=== PATIENT | female | born 1960 | race Hispanic/Latino ===

== ENCOUNTER 2016-11-25 13:07 | Emergency (ER) | payer OTHER ==
[2016-11-25] MEDS ORDERED: TDAP Vaccine 0.5 mL Syr IM ONE (13:41)
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
[2016-11-25] MEDS ORDERED: Lidocaine/Epi 1% 1:100000 20 ML IJ ONE (16:12)
[2016-11-25] MEDS ORDERED: Lidocaine 2% w Epi 1:100,000 Inj IJ ONE (16:25)
--- NOTE | 2016-11-25 16:53 | CT ---
CT orbits without IV contrast Indication: r/o facial bone fx Comparison: Noncontrast head CT performed the same day. Technique: Axial computed tomography images were obtained of the orbits without the use of intravenous contrast. Coronal and sagittal reformatted images were generated and reviewed. This CT exam was performed using 1 or more of the falling dose reduction techniques: Automated exposure control, adjustment of the MAA and/or kV according to patient size, and/or use of iterative reconstruction technique. Radiation dose: Total exam DLP = 773.48 mGy-cm. Findings: Left frontal/ scalp soft tissue swelling. The facial bones appear intact without acute displaced fracture. The orbits appear unremarkable. The temporomandibular joints are located. Mucosal thickening of the left sphenoid sinus. No air-fluid levels. Minimal opacification within the right external auditory canal, likely cerumen. The visualized brain appears unremarkable. Enlarged lobulated soft tissue mass anterior to the anterior margin of the sternocleidomastoid on the right containing coarse calcifications. Correlate clinically for dystrophic calcifications related to prior head and neck radiation. Asymmetry of the hypopharynx on the right as compared to the left ; underlying neoplasm is not excluded. The skin and subcutaneous thickening likely related to edema/erythema. Follow-up CT of the neck with IV contrast recommended if indicated. Degenerative changes of the included portions upper cervical spine. Please refer to CT cervical spine performed the same day. Impression: Left frontal/scalp soft tissue swelling. No acute displaced fracture. Enlarged lobulated soft tissue mass anterior to the anterior margin of the sternocleidomastoid on the right containing coarse calcifications. Correlate clinically for dystrophic calcifications related to prior head and neck radiation. Asymmetry of the hypopharynx on the right as compared to the left ; underlying neoplasm is not excluded. The skin and subcutaneous thickening likely related to edema/erythema ; this may also be related to prior radiation. Follow-up CT soft tissue neck with IV contrast recommended for further evaluation if indicated. Findings were discussed with Willaim Dooley on 11/21/16 at approximately 340 p.m..
[2016-11-25 19:52] VITALS: BP 132/92; PULSE 96; RESP 14; TEMP 98.8; O2SAT 98
== END 2016-11-25 18:10 | disposition home or self-care (01) ==
LOC: H.ER 13:07
DX: S01.81XA Laceration without foreign body of other part of head, initial encounter (principal); M54.2 Cervicalgia; R51 Headache; V43.52XA Car driver injured in collision with other type car in traffic accident, initial encounter; Y92.410 Unspecified street and highway as the place of occurrence of the external cause; I10 Essential (primary) hypertension; J45.909 Unspecified asthma, uncomplicated; Z92.3 Personal history of irradiation

== ENCOUNTER 2016-12-02 12:27 | Emergency (ER) | payer OTHER ==
[2016-12-02 12:45] VITALS: BP 109/72; PULSE 86; RESP 16; TEMP 98.2; O2SAT 100
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
== END 2016-12-02 13:35 | disposition home or self-care (01) ==
LOC: H.ER 12:27
DX: Z48.02 Encounter for removal of sutures (principal); I10 Essential (primary) hypertension; J45.909 Unspecified asthma, uncomplicated

== ENCOUNTER 2017-04-24 11:35 | Emergency (ER) | payer OTHER ==
[2017-04-24 12:09] VITALS: BP 119/82; PULSE 77; RESP 16; TEMP 97.8; O2SAT 97; BMI 22.1
--- NOTE | 2017-04-24 13:00 | ED PDOC ---
Lower Extremity Pain/Injury Time Seen by Provider: 04/24/17 12:10 Chief Complaint (Nursing): Lower Extremity Problem/Injury Chief Complaint (Provider): Left Ankle Pain History Per: Patient History/Exam Limitations: no limitations Onset/Duration Of Symptoms: Days (x3 weeks) Current Symptoms Are (Timing): Still Present Additional Complaint(s): Melodie Sotomayor is a 57 year old female that presents to the ED with a chief complaint of left ankle and calf pain. Patient reports that three weeks ago she twisted her left ankle during a fall, and has continued to experience pain since then. 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) Denies: HIV, Chronic Kidney Disease - Family History Family History: States: Unknown Family Hx - Immunization History Hx Tetanus Toxoid Vaccination: Yes - Home Medications Home Medications: Ambulatory Orders Medication Instructions Recorded ALPRAZolam [Xanax] 1 mg PO TID PRN #10 tab 09/29/15 Albuterol HFA [Ventolin HFA 90 2 puff IH Q6H PRN 12/19/15 mcg/actuation (8 g)] Hydrocodone/Acetaminophen [[place] 1 tab PO Q4H PRN 12/19/15 10-325 Tablet] Cephalexin [Keflex] 500 mg PO QID #20 capsule 11/25/16 Ibuprofen [Motrin] 600 mg PO Q8 PRN #15 tab 11/25/16 Clindamycin [Cleocin] 300 mg PO QID #40 cap 04/24/17 - Allergies Allergies/Adverse Reactions: Allergies Allergy/AdvReac Type Severity Reaction Status Date / Time naproxen [From Naprosyn] Allergy RASH Verified 12/02/16 12:42 prednisone Allergy RASH Verified 12/02/16 12:42 Review of Systems Musculoskeletal: Positive for: Leg Pain (left ankle and calf pain) Physical Exam - Reviewed Nursing Documentation Reviewed: Yes Vital Signs Reviewed: Yes - Physical Exam Appears: Positive for: Non-toxic, No Acute Distress Head Exam: Positive for: ATRAUMATIC, NORMOCEPHALIC Skin: Positive for: Normal Color, Warm Eye Exam: Positive for: Normal appearance, EOMI, PERRL Pulses-Dorsalis Pedis (L): 2+ Pulses-Dorsalis Pedis (R): 2+ Pulses-Post. Tibialis (L): 2+ Pulses-Post. Tibialis (R): 2+ Extremity: Positive for: Normal ROM, Tenderness (Mild TTP left medial and lateral malleolus), Calf Tenderness (Left calf). Negative for: Deformity, Swelling Neurologic/Psych: Positive for: Alert, Oriented. Negative for: Motor/Sensory Deficits - ECG O2 Sat by Pulse Oximetry: 97 (RA) Pulse Ox Interpretation: Normal Medical Decision Making Medical Decision Making: Impression: Left Ankle Injury Plan: * X-Ray Left Ankle * US Left Lower Extremity Vein (-) DVT X-ray without acute fracture or dislocation. Scribe Attestation: Documented by Mirian Cedillo, acting as a scribe for Latanya Pate PA-C. Provider Scribe Attestation: All medical record entries made by the Scribe were at my direction and personally dictated by me. I have reviewed the chart and agree that the record accurately reflects my personal performance of the history, physical exam, medical decision making, and the department course for this patient. I have also personally directed, reviewed, and agree with the discharge instructions and disposition. Disposition - Clinical Impression Clinical Impression: Ankle injury - Patient ED Disposition Is Patient to be Admitted: No Counseled Patient/Family Regarding: Diagnosis, Need For Followup - Disposition Referrals: Podiatry Clinic [Outside] Disposition: Routine/Home Disposition Time: 14:01 Condition: GOOD Prescriptions: Clindamycin [Cleocin] 300 mg PO QID #40 cap Instructions: Ankle Sprain (ED) Forms: [employer] (Citizen Of [place])
--- NOTE | 2017-04-24 14:24 | RAD ---
PROCEDURE: Left Ankle Radiographs. HISTORY: twisted 3 weeks ago, not improving COMPARISON: None FINDINGS: BONES: Bone alignment and mineralization are normal. No acute fracture. There is a small plantar calcaneal spur. JOINTS: Normal. No osteoarthritis. Ankle mortise maintained. Talar dome intact SOFT TISSUES: Normal. OTHER FINDINGS: None. IMPRESSION: No acute fracture or dislocation.
--- NOTE | 2017-04-24 14:33 | US ---
HISTORY: Pain, history of cancer PRIORS: None. FINDINGS: 2-D, color and duplex Doppler analysis of the lower extremity venous circulation using routine protocol from the femoral veins through the popliteal veins. Venous compressibility: Normal. Flow and augmentation patterns: Normal. Visualized veins upper third of calf: Normal. Gill[place]and cyst: None. IMPRESSION: No sonographic or Doppler evidence for DVT in left lower extremity.
== END 2017-04-24 14:06 | disposition home or self-care (01) ==
LOC: H.ER 11:35
DX: M25.572 Pain in left ankle and joints of left foot (principal); I10 Essential (primary) hypertension

== ENCOUNTER 2017-10-19 19:37 | Emergency (ER) | payer SELFPAY ==
[2017-10-19 19:37] VITALS: BMI 22.1
[2017-10-19 19:47] VITALS: BP 160/78; PULSE 74; RESP 18; TEMP 97.7; O2SAT 98
--- NOTE | 2017-10-19 20:33 | ED PDOC ---
HPI: General Adult Time Seen by Provider: 10/19/17 20:09 Chief Complaint (Nursing): Abnormal Skin Integrity Chief Complaint (Provider): Medication refill, Wound Evaluation and Bloodwork History Per: Patient History/Exam Limitations: no limitations Additional Complaint(s): 57 year old female presents to the emergency room to be evaluated. The patient first states that she has noticed some drainage from her old G-tube site. She reports that she was given bactrim a month ago for the same problem but her symptoms returned. She reports that the site only drains when she squeezes it. Patient also states that she is also here to get blood work as ordered by her oncologist. She reports that she had chemotherapy last month and is unable to get her out patient labs back. Patient is also asking for a refill of her ativan , as she is unable to see her primary care provider. Patient offers no other medical complaints. PMD: Dr. 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) Denies: HIV, Chronic Kidney Disease - Surgical History Surgical History: No Surg Hx - Family History Family History: States: Unknown Family Hx - Social History Current smoker - smoking cessation education provided: No Ex-Smoker (has not smoked in the last 12 months): No Alcohol: None Drugs: Denies - Immunization History Hx Tetanus Toxoid Vaccination: Yes - Home Medications Home Medications: Ambulatory Orders Medication Instructions Recorded ALPRAZolam [Xanax] 1 mg PO TID PRN #10 tab 09/29/15 Albuterol HFA [Ventolin HFA 90 2 puff IH Q6H PRN 12/19/15 mcg/actuation (8 g)] Hydrocodone/Acetaminophen [[place] 1 tab PO Q4H PRN 12/19/15 10-325 Tablet] Cephalexin [Keflex] 500 mg PO QID #20 capsule 11/25/16 Ibuprofen [Motrin] 600 mg PO Q8 PRN #15 tab 11/25/16 Clindamycin [Cleocin] 300 mg PO QID #40 cap 04/24/17 Clindamycin [Cleocin] 450 mg PO TID #87 cap 10/19/17 LORazepam [Ativan] 1 mg PO TID PRN #15 tab 10/19/17 - Allergies Allergies/Adverse Reactions: Allergies Allergy/AdvReac Type Severity Reaction Status Date / Time naproxen [From Naprosyn] Allergy RASH Verified 12/02/16 12:42 prednisone Allergy RASH Verified 12/02/16 12:42 Review of Systems ROS Statement: Except As Marked, All Systems Reviewed And Found Negative Constitutional: Negative for: Fever, Chills Cardiovascular: Negative for: Chest Pain Gastrointestinal: Negative for: Nausea, Vomiting, Abdominal Pain, Diarrhea Physical Exam - Reviewed Nursing Documentation Reviewed: Yes Vital Signs Reviewed: Yes - Physical Exam Appears: Positive for: Non-toxic, No Acute Distress Head Exam: Positive for: ATRAUMATIC, NORMAL INSPECTION, NORMOCEPHALIC Skin: Positive for: Normal Color, Warm, Dry. Negative for: Rash Eye Exam: Positive for: Normal appearance, EOMI, PERRL Cardiovascular/Chest: Positive for: Regular Rate, Rhythm, Chest Non Tender. Negative for: Murmur, Tachycardia Respiratory: Positive for: Normal Breath Sounds. Negative for: Rales, Rhonchi, Wheezing, Respiratory Distress Gastrointestinal/Abdominal: Positive for: Bowel Sounds, Soft, Other (3mm puncture wound superior to umbilicus no active discharge minimal surrounding erythema no induration no lesions). Negative for: Tenderness, Guarding, Hernia Back: Positive for: Normal Inspection. Negative for: L CVA Tenderness, R CVA Tenderness, Vertebral Tenderness Neurologic/Psych: Positive for: Alert, Oriented, Gait - Laboratory Results Result Diagrams: 10/19/17 20:35 10/19/17 20:35 - ECG O2 Sat by Pulse Oximetry: 98 (RA) Pulse Ox Interpretation: Normal Medical Decision Making Medical Decision Makin Initial Impression 57 year old female presenting for medication refill, blood work and wound evaluation Initial Plan: * CMP * Magnesium * CBC * Wound Culture and Gram Stain * Reevaluation Documented by Ashwini Salmeron acting as a scribe for Anamika Naranjo MD. All medical record entries made by the Scribe were at my direction and personally dictated by me. I have reviewed the chart and agree that the record accurately reflects my personal performance of the history, physical exam, medical decision making, and the department course for this patient. I have also personally directed, reviewed, and agree with the discharge instructions and disposition. Disposition - Clinical Impression Clinical Impression: Cellulitis of umbilicus, Medication refill - Disposition Referrals: Nursing Techn Service [Outside] Disposition: Routine/Home Disposition Time: 21:26 Condition: STABLE Additional Instructions: FOLLOW-UP WITH YOUR PMD/ONCOLOGIST WITHIN 2 DAYS FOR REEVALUATION. Prescriptions: Clindamycin [Cleocin] 450 mg PO TID #87 cap LORazepam [Ativan] 1 mg PO TID PRN #15 tab PRN Reason: Anxiety Instructions: Cellulitis (Skin Infection), Adult (DC) Forms: [employer] ([place])
[2017-10-19 20:48] LABS: BASO # 0.1 K/uL (0.0-0.2); BASO % 1.2 % (0.0-2.0); EOS # 0.3 K/uL (0.0-0.7); EOS % 4.6 % (0.0-4.0); HEMOGLOBIN 12.3 g/dL (12.0-16.0); LYMPH # 1.8 K/uL (1.0-4.3); LYMPH % 28.1 % (20.0-40.0); MEAN CELL VOLUME 93.6 fl (81.0-99.0); MEAN CORPUSCULAR HEMOGLOBIN 31.7 pg (27.0-31.0); MEAN CORPUSCULAR HGB CONC 33.9 g/dL (33.0-37.0); MEAN PLATELET VOLUME 7.7 fl (7.2-11.7); MONO # 0.7 K/uL (0.0-0.8); MONO % 11.8 % (0.0-10.0); NEUT # 3.4 K/uL (1.8-7.0); NEUT % 54.3 % (50.0-75.0); NRBC % 0.5 % (0.0-0.0); RBC 3.87 Mil/uL (3.80-5.20); RED CELL DISTRIBUTION WIDTH 16.1 % (11.5-14.5); WHITE BLOOD COUNT 6.2 K/uL (4.8-10.8)
[2017-10-19 21:01] LABS: ALB/GLOB RATIO 1.6 (1.0-2.1); ALBUMIN 4.4 g/dL (3.5-5.0); ALT/SGPT 26 U/L (9-52); AST/SGOT 27 U/L (14-36); BLOOD UREA NITROGEN 22 mg/dl (7-17); CALCIUM 9.9 mg/dL (8.4-10.2); GFR AFRICAN-AMERICAN > 60; GFR NON-AFRICAN AMERICAN > 60
== END 2017-10-19 21:47 | disposition home or self-care (01) ==
LOC: H.ER 19:37
DX: Z51.11 Encounter for antineoplastic chemotherapy (principal); L03.316 Cellulitis of umbilicus; Z76.0 Encounter for issue of repeat prescription

== ENCOUNTER 2017-10-26 23:49 | Emergency (ER) | payer SELFPAY ==
[2017-10-26 23:49] VITALS: BMI 22.1
[2017-10-27 00:09] VITALS: RESP 17; TEMP 97.5; O2SAT 99
[2017-10-27 01:08] LABS: BASO # 0.1 K/uL (0.0-0.2); BASO % 1.3 % (0.0-2.0); EOS # 0.3 K/uL (0.0-0.7); HEMOGLOBIN 12.2 g/dL (12.0-16.0); LYMPH # 1.5 K/uL (1.0-4.3); LYMPH % 26.5 % (20.0-40.0); MEAN CELL VOLUME 93.1 fl (81.0-99.0); MEAN CORPUSCULAR HEMOGLOBIN 32.1 pg (27.0-31.0); MEAN CORPUSCULAR HGB CONC 34.5 g/dL (33.0-37.0); MEAN PLATELET VOLUME 7.9 fl (7.2-11.7); MONO # 0.7 K/uL (0.0-0.8); MONO % 11.6 % (0.0-10.0); NEUT # 3.1 K/uL (1.8-7.0); NEUT % 55.6 % (50.0-75.0); NRBC % 0.2 % (0.0-0.0); RBC 3.8 Mil/uL (3.80-5.20); RED CELL DISTRIBUTION WIDTH 15.5 % (11.5-14.5); WHITE BLOOD COUNT 5.7 K/uL (4.8-10.8)
[2017-10-27 01:11] LABS: ALB/GLOB RATIO 1.5 (1.0-2.1); ALBUMIN 4.1 g/dL (3.5-5.0); ALT/SGPT 27 U/L (9-52); AST/SGOT 23 U/L (14-36); BLOOD UREA NITROGEN 26 mg/dl (7-17); CALCIUM 9.4 mg/dL (8.4-10.2); GFR AFRICAN-AMERICAN > 60; GFR NON-AFRICAN AMERICAN 57
[2017-10-27] MEDS ORDERED: Iohexol 300 100 ML IJ ONE (01:46)
[2017-10-27] MEDS ORDERED: Sodium Chloride 0.9% 100 ML ONE (01:46)
[2017-10-27 02:52] LABS: SQUAMOUS EPITHIAL < 1 /hpf (0-5); URINE BILIRUBIN NEGATIVE (NEGATIVE); URINE BLOOD NEGATIVE (NEGATIVE); URINE CLARITY CLEAR (Clear); URINE COLOR YELLOW (YELLOW); URINE GLUCOSE (UA) NEG (Normal); URINE LEUKOCYTE ESTERASE MOD Leu/uL (Negative); URINE PROTEIN NEGATIVE (NEGATIVE); URINE UROBILINOGEN 0.2-1.0 mg/dL (0.2-1.0)
--- NOTE | 2017-10-27 03:25 | CT ---
EXAM: CT Abdomen and Pelvis With Intravenous Contrast EXAM DATE/TIME: 10/27/2017 12:20 AM CLINICAL HISTORY: 57 years old, female; Pain; Abdominal pain; Periumbilical; Additional info: R/O abscess. Old gtube removed 2016. Wound check TECHNIQUE: Axial computed tomography images of the abdomen and pelvis with intravenous contrast. All CT scans at this facility use one or more dose reduction techniques, viz.: automated exposure control; ma/kV adjustment per patient size (including targeted exams where dose is matched to indication; i.e. head); or iterative reconstruction technique. Coronal and sagittal reformatted images were created and reviewed. CONTRAST: 90 mL of [id number] administered intravenously. COMPARISON: CT - ABD PELVIS W/O PO OR IV CONT 2015-12-19 20:47 FINDINGS: Large gallstones are present similar to prior without evidence of pericholecystic inflammation. There is slight prominence of the intrahepatic biliary ducts.Recommend correlation with laboratory values. The spleen, pancreas, kidneys are normal. There is a bandlike area of soft tissue density in the subcutaneous fat anterior to the gastric lumen, presumably representing the tract of the patient's reported prior gastrostomy tube. The tract measures 8 mm in width and extends from the skin surface to the underlying left abdominis rectus muscle. There is no walled off fluid collection. There is no abscess. There is a linear metallic density along the anterior aspect of the gastric lumen. A normal appendix is identified axial images 120 through 137, coronal images 52 through 64. IMPRESSION: Bandlike soft tissue in the subcutaneous fat anterior to the gastric lumen, presumably tract of the patient's prior gastrostomy tube. No drainable abscess. Cholelithiasis. Slight prominence of the intrahepatic biliary ducts.Recommend correlation with laboratory values.
--- NOTE | 2017-10-27 03:30 | ED PDOC ---
HPI: Wound Care - HPI Time Seen by Provider: 10/27/17 00:08 Chief Complaint (Nursing): Wound Check Chief Complaint (Provider): Ostomy problems History Per: Patient History Of Present Illness: Pt indicates that she is a cancer patient from [place] who has developed a redness surrounding her ostomy from a g-tube that was removed approximately one year ago. 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) Denies: HIV, Chronic Kidney Disease - Family History Family History: States: Unknown Family Hx - Immunization History Hx Tetanus Toxoid Vaccination: Yes - Home Medications Home Medications: Ambulatory Orders Medication Instructions Recorded ALPRAZolam [Xanax] 1 mg PO TID PRN #10 tab 09/29/15 Albuterol HFA [Ventolin HFA 90 2 puff IH Q6H PRN 12/19/15 mcg/actuation (8 g)] Hydrocodone/Acetaminophen [[place] 1 tab PO Q4H PRN 12/19/15 10-325 Tablet] Cephalexin [Keflex] 500 mg PO QID #20 capsule 11/25/16 Ibuprofen [Motrin] 600 mg PO Q8 PRN #15 tab 11/25/16 Clindamycin [Cleocin] 300 mg PO QID #40 cap 04/24/17 Clindamycin [Cleocin] 450 mg PO TID #87 cap 10/19/17 LORazepam [Ativan] 1 mg PO TID PRN #15 tab 10/19/17 - Allergies Allergies/Adverse Reactions: Allergies Allergy/AdvReac Type Severity Reaction Status Date / Time naproxen [From Naprosyn] Allergy RASH Verified 12/02/16 12:42 prednisone Allergy RASH Verified 12/02/16 12:42 Review of Systems Skin: Positive for: Other (see HPI) - Laboratory Results Result Diagrams: 10/27/17 00:45 10/27/17 00:45 - ECG O2 Sat by Pulse Oximetry: 99 Medical Decision Making Medical Decision Making: R/O Abscess of abdominal wall CT CBC - no clinical abnormalities CMP - no clinical abnormalities CT ABD & PELVIS with IV CONTRAST TECHNIQUE: Axial computed tomography images of the abdomen and pelvis with intravenous contrast. All CT scans at this facility use one or more dose reduction techniques, viz.: automated exposure control; ma/kV adjustment per patient size (including targeted exams where dose is matched to indication; i.e. head); or iterative reconstruction technique. Coronal and sagittal reformatted images were created and reviewed. CONTRAST: 90 mL of [id number] administered intravenously. COMPARISON: CT - ABD PELVIS W/O PO OR IV CONT 2015-12-19 20:47 FINDINGS: Large gallstones are present similar to prior without evidence of pericholecystic inflammation. There is slight prominence of the intrahepatic biliary ducts.Recommend correlation with laboratory values. The spleen, pancreas, kidneys are normal. There is a bandlike area of soft tissue density in the subcutaneous fat anterior to the gastric lumen, presumably representing the tract of the patient's reported prior gastrostomy tube. The tract measures 8 mm in width and extends from the skin surface to the underlying left abdominis rectus muscle. There is no walled off fluid collection. There is no abscess. There is a linear metallic density along the anterior aspect of the gastric lumen. A normal appendix is identified axial images 120 through 137, coronal images 52 through 64. IMPRESSION: Bandlike soft tissue in the subcutaneous fat anterior to the gastric lumen, presumably tract of the patient's prior gastrostomy tube. No drainable abscess. Cholelithiasis. Slight prominence of the intrahepatic biliary ducts.Recommend correlation with laboratory values. 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
[2017-10-27 04:29] VITALS: BP 107/78; PULSE 82
== END 2017-10-27 04:29 | disposition home or self-care (01) ==
LOC: H.ER 23:49
DX: K94.09 Other complications of colostomy (principal); I10 Essential (primary) hypertension; J45.909 Unspecified asthma, uncomplicated; Z85.41 Personal history of malignant neoplasm of cervix uteri
CPT/HCPCS: 74177; 80053; 81003; 85025; 99283; Q9967

== ENCOUNTER 2018-03-03 17:42 | Emergency (ER) | payer MEDICAID ==
[2018-03-03 17:42] VITALS: BMI 22.1
[2018-03-03] MEDS ORDERED: Albuterol-Ipratrop 3 mg / 0.5 (3 ml) UD INH STA ×5 (18:24→20:32)
[2018-03-03 19:02] LABS: BASO # 0.1 K/uL (0.0-0.2); BASO % 1.1 % (0.0-2.0); EOS # 0.4 K/uL (0.0-0.7); EOS % 5.4 % (0.0-4.0); LYMPH # 1.5 K/uL (1.0-4.3); LYMPH % 18.4 % (20.0-40.0); MEAN CELL VOLUME 88.2 fl (81.0-99.0); MEAN CORPUSCULAR HEMOGLOBIN 30.1 pg (27.0-31.0); MEAN CORPUSCULAR HGB CONC 34.1 g/dL (33.0-37.0); MEAN PLATELET VOLUME 7.9 fl (7.2-11.7); MONO # 0.7 K/uL (0.0-0.8); MONO % 8.5 % (0.0-10.0); NEUT # 5.3 K/uL (1.8-7.0); NEUT % 66.6 % (50.0-75.0); NRBC % 0.1 % (0.0-0.0); RBC 4.65 Mil/uL (3.80-5.20); RED CELL DISTRIBUTION WIDTH 13.3 % (11.5-14.5); WHITE BLOOD COUNT 7.9 K/uL (4.8-10.8)
[2018-03-03 19:17] LABS: BLOOD UREA NITROGEN 15 mg/dl (7-17); CALCIUM 9.6 mg/dL (8.4-10.2); GFR AFRICAN-AMERICAN > 60; GFR NON-AFRICAN AMERICAN 51
--- NOTE | 2018-03-03 19:23 | ED PDOC ---
HPI: SOB/CHF/COPD Time Seen by Provider: 03/03/18 18:12 Chief Complaint (Nursing): Shortness Of Breath Chief Complaint (Provider): Shortness Of Breath History Per: Patient History/Exam Limitations: no limitations Onset/Duration Of Symptoms: Persistent (x1 week) Current Symptoms Are (Timing): Still Present Additional Complaint(s): 57 year old female with pmHx of asthma and squamous cell CA, arrives to ED with complaints of difficulty breathing, wheezing, cough and chills ongoing for 1 week. Patient was given Augmentin by PMD which made her feel better. However, she states today that she did not feel well with worsening symptoms. No reports of fever or chest pain. Of note, patient is currently undergoing experimental treatment for her squamous cell CA of the head and neck at [facility]. 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) Denies: HIV, Chronic Kidney Disease - Surgical History Surgical History: No Surg Hx - Family History Family History: States: Unknown Family Hx - Social History Current smoker - smoking cessation education provided: No Ex-Smoker (has not smoked in the last 12 months): No Alcohol: None Drugs: Denies - Immunization History Hx Tetanus Toxoid Vaccination: Yes - Home Medications Home Medications: Ambulatory Orders Medication Instructions Recorded ALPRAZolam [Xanax] 1 mg PO TID PRN #10 tab 09/29/15 Albuterol HFA [Ventolin HFA 90 2 puff IH Q6H PRN 12/19/15 mcg/actuation (8 g)] Hydrocodone/Acetaminophen [[place] 1 tab PO Q4H PRN 12/19/15 10-325 Tablet] Cephalexin [Keflex] 500 mg PO QID #20 capsule 11/25/16 Ibuprofen [Motrin] 600 mg PO Q8 PRN #15 tab 11/25/16 Clindamycin [Cleocin] 300 mg PO QID #40 cap 09/21/17 Clindamycin [Cleocin] 450 mg PO TID #87 cap 10/19/17 LORazepam [Ativan] 1 mg PO TID PRN #15 tab 10/19/17 Albuterol HFA [Ventolin HFA 90 2 puff IH [id number] #1 puff 03/03/18 mcg/actuation (8 g)] Dexamethasone [Decadron] 4 mg PO DAILY #4 tab 03/03/18 - Allergies Allergies/Adverse Reactions: Allergies Allergy/AdvReac Type Severity Reaction Status Date / Time naproxen [From Naprosyn] Allergy RASH Verified 03/03/18 17:53 prednisone Allergy RASH Verified 03/03/18 17:53 Review of Systems ROS Statement: Except As Marked, All Systems Reviewed And Found Negative Constitutional: Positive for: Chills. Negative for: Fever Cardiovascular: Negative for: Chest Pain Respiratory: Positive for: Cough, Shortness of Breath, Wheezing Physical Exam - Reviewed Nursing Documentation Reviewed: Yes Vital Signs Reviewed: Yes - Physical Exam Appears: Positive for: In Acute Distress (mild) Head Exam: Positive for: ATRAUMATIC, NORMAL INSPECTION, NORMOCEPHALIC Skin: Positive for: Normal Color Eye Exam: Positive for: Normal appearance, EOMI, PERRL ENT: Positive for: Normal ENT Inspection Neck: Positive for: Normal Cardiovascular/Chest: Positive for: Tachycardia (with regular rhythm) Respiratory: Positive for: Decreased Breath Sounds, Accessory Muscle Use, Wheezing (bilaterally), Respiratory Distress Gastrointestinal/Abdominal: Positive for: Normal Exam, Soft. Negative for: Tenderness Extremity: Positive for: Normal ROM Neurologic/Psych: Positive for: Alert, Oriented. Negative for: Motor/Sensory Deficits - Laboratory Results Result Diagrams: 03/03/18 18:50 03/03/18 18:50 - ECG O2 Sat by Pulse Oximetry: 90 (RA) Pulse Ox Interpretation: Normal Medical Decision Making Medical Decision Making: Initial Impression: Respiratory distress; cough with wheezing Differential includes but not limited to: asthma exacerbation, acute bronchitis , pneumonia Initial Plan: * ABG * EKG * BNP * BMP * Magnesium * Troponin I * CBC * CXR * Duoneb 3ml INH * Blood culture Time: 1826 --CXR: No acute cardiopulmonary process. --Patient states that she was instructed not to receive any IV mediations without approval due to experimental treatment. ---Called made out to [facility] at [phone]. 1899 Awaiting call back from [facility]. Time: 1850 --EKG: NSR at 99BMP. No ST changes. Normal QRS. Scribe Attestation: Documented by Linda Fulton, acting as a scribe for Curtis Silva MD. Provider Scribe Attestation: All medical record entries made by the Scribe were at my direction and personally dictated by me. I have reviewed the chart and agree that the record accurately reflects my personal performance of the history, physical exam, medical decision making, and the department course for this patient. I have also personally directed, reviewed, and agree with the discharge instructions and disposition. Disposition - Clinical Impression Clinical Impression: Asthma exacerbation - Patient ED Disposition Is Patient to be Admitted: Transfer of Care Counseled Patient/Family Regarding: Studies Performed, Diagnosis - Disposition Disposition: Transfer of Care Disposition Time: 19:00 Condition: STABLE Additional Instructions: Please followup with your team at [facility] ([facility] Khan[facility]) SOON POSSIBLE. If your breathing worsens, or you develop chest pain, fever > 102, or any other concerning symptoms, please return to ER. Please do not take the dexamethasone without the consultation of your team of physicians. Prescriptions: Albuterol HFA [Ventolin HFA 90 mcg/actuation (8 g)] 2 puff IH [id number] #1 puff Dexamethasone [Decadron] 4 mg PO DAILY #4 tab Instructions: Asthma, Adult (DC) Patient Signed Over To: Rafael Olvera
[2018-03-03 19:29] LABS: B-TYPE NATRIURETIC PEPTIDE 38.9 pg/ml (0-900)
[2018-03-03 19:59] LABS: ABG ALLEN TEST YES; ARTERIAL BLOOD GAS HCO3 25.5 mmol/L (21-28); ARTERIAL BLOOD GAS HEMOGLOBIN 13.6 g/dL (11.7-17.4); ARTERIAL BLOOD GAS O2 CAPACITY 18.2 mL/dL (16-24); ARTERIAL BLOOD GAS O2 CONTENT 16.2 ML/dL (15-23); ARTERIAL BLOOD GAS O2 SAT 88.8 % (95-98); ARTERIAL BLOOD GAS PCO2 41 mm/Hg (35-45); ARTERIAL BLOOD GAS PH 7.41 (7.35-7.45); ARTERIAL BLOOD GAS PO2 50 mm/Hg (80-100); ARTERIAL BLOOD GAS TCO2 27.3 mmol/L (22-28)
[2018-03-03] MEDS ORDERED: Albuterol HFA 90 mcg/actuation (8 g) INH STA (21:58)
--- NOTE | 2018-03-03 21:59 | ED PDOC ---
- Laboratory Results Result Diagrams: 03/03/18 18:50 03/03/18 18:50 - ECG O2 Sat by Pulse Oximetry: 90 (RA) Medical Decision Making Medical Decision Making: Time: 1899 --Patient is endorsed to provider by Dr. Silva, pending lab results and re- evaluation. Awaiting call-back from [facility]. Time: 2146 --Patient reports feeling significantly better with Nebulizer treatment. Vitals and wheezing significantly improved. She states she does not want steroids without consulting primary team at [facility]. Multiple attempts were made to contact hospital without success. Patient is asking for an Rx for inhaler and Decadron as she has used it previously with relief. Patient states she will call hospital tomorrow to ask her doctors if it is okay to take decadron. Provider strongly advised not to use Decadron without consulting team first. Counseled regarding diagnosis. There is agreement to discharge plan. Return precautions discussed with patient. Scribe Attestation: Documented by Linda Fulton, acting as a scribe for Rafael Olvera MD. Provider Scribe Attestation: All medical record entries made by the Scribe were at my direction and personally dictated by me. I have reviewed the chart and agree that the record accurately reflects my personal performance of the history, physical exam, medical decision making, and the department course for this patient. I have also personally directed, reviewed, and agree with the discharge instructions and disposition. Disposition Counseled Patient/Family Regarding: Studies Performed, Diagnosis, Need For Followup, Rx Given - Clinical Impression Clinical Impression: Asthma exacerbation - POA Present On Arrival: None - Disposition Disposition: Routine/Home Disposition Time: 21:47 Condition: IMPROVED Additional Instructions: Please followup with your team at [facility] ([facility]) SOON POSSIBLE. If your breathing worsens, or you develop chest pain, fever > 102, or any other concerning symptoms, please return to ER. Please do not take the dexamethasone without the consultation of your team of physicians. Prescriptions: Albuterol HFA [Ventolin HFA 90 mcg/actuation (8 g)] 2 puff IH [id number] #1 puff Dexamethasone [Decadron] 4 mg PO DAILY #4 tab Instructions: Asthma, Adult (DC) Forms: [email or web address] (Norwegian)
[2018-03-03 22:12] VITALS: BP 111/75; PULSE 86; RESP 20; TEMP 98.6
[2018-03-04 04:44] VITALS: O2SAT 90
--- NOTE | 2018-03-04 09:17 | CARD ---
APPROVED REPORT Date of service: 03/03/2018 EKG Measurement Heart [id number] <Conclusion> Normal sinus rhythm Normal ECG
--- NOTE | 2018-03-04 10:26 | RAD ---
Date of service: 03/03/2018 PROCEDURE: CHEST RADIOGRAPH, 1 VIEW HISTORY: Dyspnea COMPARISON: 12/15/2015. FINDINGS: LUNGS: The lungs are well inflated and clear. PLEURA: No pneumothorax or pleural fluid seen. CARDIOVASCULAR: Normal. OSSEOUS STRUCTURES: No significant abnormalities. VISUALIZED UPPER ABDOMEN: Normal. OTHER FINDINGS: None. IMPRESSION: No active pulmonary disease.
== END 2018-03-03 22:25 | disposition home or self-care (01) ==
LOC: H.ER 17:42
DX: J45.901 Unspecified asthma with (acute) exacerbation (principal); I10 Essential (primary) hypertension; Z85.41 Personal history of malignant neoplasm of cervix uteri

== ENCOUNTER 2018-03-08 19:37 | Emergency (ER) | payer MEDICAID ==
[2018-03-08 19:37] VITALS: BMI 22.1
[2018-03-08 19:51] VITALS: TEMP 98.8
[2018-03-08] MEDS ORDERED: Albuterol-Ipratrop 3 mg / 0.5 (3 ml) UD INH STA ×3 (20:12→23:18)
[2018-03-08] MEDS ORDERED: Albuterol-Ipratrop 3 mg / 0.5 (3 ml) UD ONE ×2 (20:25→23:28)
[2018-03-08 20:55] LABS: BASO # 0.1 K/uL (0.0-0.2); BASO % 1.1 % (0.0-2.0); EOS # 0.9 K/uL (0.0-0.7); EOS % 11.4 % (0.0-4.0); HEMOGLOBIN 13.4 g/dL (12.0-16.0); LYMPH # 1.3 K/uL (1.0-4.3); LYMPH % 16.6 % (20.0-40.0); MEAN CELL VOLUME 88.2 fl (81.0-99.0); MEAN PLATELET VOLUME 7.7 fl (7.2-11.7); MONO # 0.8 K/uL (0.0-0.8); MONO % 9.8 % (0.0-10.0); NEUT # 4.9 K/uL (1.8-7.0); NEUT % 61.1 % (50.0-75.0); NRBC % 0.1 % (0.0-0.0); RBC 4.45 Mil/uL (3.80-5.20); RED CELL DISTRIBUTION WIDTH 13.4 % (11.5-14.5)
[2018-03-08 20:59] LABS: ALB/GLOB RATIO 1.6 (1.0-2.1); ALBUMIN 4.3 g/dL (3.5-5.0); ALT/SGPT 34 U/L (9-52); AST/SGOT 38 U/L (14-36); BLOOD UREA NITROGEN 16 mg/dl (7-17); CALCIUM 9.3 mg/dL (8.4-10.2); GFR AFRICAN-AMERICAN > 60; GFR NON-AFRICAN AMERICAN 51
[2018-03-08 21:08] LABS: B-TYPE NATRIURETIC PEPTIDE 101 pg/ml (0-900)
[2018-03-08 21:30] VITALS: O2SAT 95
--- NOTE | 2018-03-08 21:57 | ED PDOC ---
HPI: SOB/CHF/COPD Time Seen by Provider: 03/08/18 19:40 Chief Complaint (Nursing): Respiratory Distress Chief Complaint (Provider): Asthma Exacerbation History Per: Patient History/Exam Limitations: no limitations Onset/Duration Of Symptoms: Days (x4) Current Symptoms Are (Timing): Still Present Additional Complaint(s): 57 y/o female with a PMHx of head and neck cancer (receiving Keytruda treatment at [facility] for squamous cell carcinoma) and hypertension presenting with mother for evaluation of asthma exacerbation, cough productive of yellow phlegm , shortness of breath, and difficulty breathing x4 days. Patient was seen here 4 days ago for shortness of breath and bronchitis, but reports minmal improvement of symptoms. Patient reports nausea, but denies vomiting or diarrhea. PMD: Unknown Past Medical History Vital Signs: Last Vital Signs Temp 98.8 F 03/08/18 19:46 Pulse 96 H 03/08/18 23:45 Resp 16 03/08/18 23:45 BP 120/76 03/08/18 23:45 Pulse Ox 95 03/08/18 23:49 - Medical History PMH: Asthma, HTN, Malignancy (internal Stage 4 Squamous Cell Carcinoma of the head/neck) Denies: HIV, Chronic Kidney Disease - Surgical History Surgical History: No Surg Hx - Family History Family History: States: Unknown Family Hx - Social History Ex-Smoker (has not smoked in the last 12 months): Yes Alcohol: None Drugs: Denies - Immunization History Hx Tetanus Toxoid Vaccination: Yes - Home Medications Home Medications: Ambulatory Orders Medication Instructions Recorded ALPRAZolam [Xanax] 1 mg PO TID PRN #10 tab 09/29/15 Albuterol HFA [Ventolin HFA 90 2 puff IH Q6H PRN 12/19/15 mcg/actuation (8 g)] Hydrocodone/Acetaminophen [[place] 1 tab PO Q4H PRN 12/19/15 10-325 Tablet] Cephalexin [Keflex] 500 mg PO QID #20 capsule 11/25/16 Ibuprofen [Motrin] 600 mg PO Q8 PRN #15 tab 11/25/16 Clindamycin [Cleocin] 300 mg PO QID #40 cap 04/24/17 Clindamycin [Cleocin] 450 mg PO TID #87 cap 10/19/17 LORazepam [Ativan] 1 mg PO TID PRN #15 tab 10/19/17 Albuterol HFA [Ventolin HFA 90 2 puff IH [id number] #1 puff 03/03/18 mcg/actuation (8 g)] Dexamethasone [Decadron] 4 mg PO DAILY #4 tab 03/03/18 - Allergies Allergies/Adverse Reactions: Allergies Allergy/AdvReac Type Severity Reaction Status Date / Time naproxen [From Naprosyn] Allergy RASH Verified 03/03/18 17:53 prednisone Allergy RASH Verified 03/03/18 17:53 Review of Systems ROS Statement: Except As Marked, All Systems Reviewed And Found Negative Respiratory: Positive for: Cough, Shortness of Breath, Sputum, Wheezing Gastrointestinal: Positive for: Nausea. Negative for: Vomiting, Diarrhea Physical Exam - Reviewed Nursing Documentation Reviewed: Yes Vital Signs Reviewed: Yes - Physical Exam Appears: Positive for: Non-toxic, No Acute Distress Head Exam: Positive for: ATRAUMATIC, NORMAL INSPECTION, NORMOCEPHALIC Skin: Positive for: Normal Color, Warm, Dry. Negative for: Rash Eye Exam: Positive for: EOMI, Normal appearance, PERRL ENT: Positive for: Normal ENT Inspection (speaking full sentences), Pharynx Is ( clear) Neck: Positive for: Normal, Painless ROM, Supple Cardiovascular/Chest: Positive for: Regular Rate, Rhythm. Negative for: Murmur Respiratory: Positive for: Wheezing (slight) Gastrointestinal/Abdominal: Positive for: Normal Exam, Soft. Negative for: Tenderness Back: Positive for: Normal Inspection. Negative for: L CVA Tenderness, R CVA Tenderness, Vertebral Tenderness Extremity: Positive for: Normal ROM. Negative for: Deformity Neurologic/Psych: Positive for: Alert, Oriented (x3). Negative for: Motor/ Sensory Deficits - Laboratory Results Result Diagrams: 03/08/18 20:39 03/08/18 20:39 - ECG ECG Rhythm: Positive for: Sinus Tachycardia (105) O2 Sat by Pulse Oximetry: 95 (RA) Pulse Ox Interpretation: Normal Medical Decision Making Medical Decision Makin:12 Plan: astyhma exacerbation rule out pneumonia -BNP -CMP -CBC w/ differential -Duoneb 3ml INH -Peak flow treatment -Reevaluation cxr appears to have no pneumonia labs reviewed, Upon reevaluation, potassium level was low so it was repeated. however pt refused the K. pt states has an appt tomorrow at [facility] when she gets her chemo treatment there. she states she needs to go home now, doesnt want steroids for asthma bec isnt sure it is compatible w her treatment tomorrow. however states she has to leave in a few hours to get to [facility] so will prefer to leave now. she states that the nebulizer treatments helped her. Upon provider evaluation patient is medically stable, and requires no further treatment in the ED at this time. Patient will be discharged. Counseling was provided and all questions were answered regarding diagnosis and need for follow up with [facility] for your treatment as instructed. There is agreement to discharge plan. Return if symptoms persist or worsen. Scribe Attestation: Documented by Go Contreras and Norma Joseph, acting as a scribes for Manuel Childress MD. Provider Scribe Attestation: All medical record entries made by the Scribe were at my direction and personally dictated by me. I have reviewed the chart and agree that the record accurately reflects my personal performance of the history, physical exam, medical decision making, and the department course for this patient. I have also personally directed, reviewed, and agree with the discharge instructions and disposition. Disposition - Clinical Impression Clinical Impression: Asthma attack - Patient ED Disposition Is Patient to be Admitted: No Counseled Patient/Family Regarding: Studies Performed, Diagnosis, Need For Followup - Disposition Disposition: Routine/Home Disposition Time: 23:20 Condition: IMPROVED Additional Instructions: follow up in [facility] tomorrow for your treatment as instructed return to the ED with any worsening or concerning symptoms Instructions: Asthma, Adult (DC) Forms: [employer] (Lao)
[2018-03-08] MEDS ORDERED: Potassium Chloride 20 mEq ER Tab PO ONE (22:55)
[2018-03-09 00:02] VITALS: BP 120/76; PULSE 96; RESP 16
--- NOTE | 2018-03-09 09:28 | RAD ---
Date of service: 03/08/2018 HISTORY: cough COMPARISON: Frontal chest radiograph 03/03/2018. TECHNIQUE: Chest PA and lateral FINDINGS: LUNGS: No active pulmonary disease. PLEURA: No significant pleural effusion identified. No pneumothorax apparent. CARDIOVASCULAR: Normal. OSSEOUS STRUCTURES: No significant abnormalities. VISUALIZED UPPER ABDOMEN: Normal. OTHER FINDINGS: None. IMPRESSION: No interval acute cardiopulmonary disease appreciated.
== END 2018-03-09 00:02 | disposition home or self-care (01) ==
LOC: H.ER 19:37
DX: J45.901 Unspecified asthma with (acute) exacerbation (principal); I10 Essential (primary) hypertension; Z85.41 Personal history of malignant neoplasm of cervix uteri

== ENCOUNTER 2018-04-17 11:39 | Inpatient (IN) | payer MEDICAID ==
[2018-04-17 12:08] VITALS: BMI 24.7
[2018-04-17] MEDS ORDERED: Dexamethasone 10 MG in Sodium Chloride 0.9% 50 ML IV ONE (12:12)
[2018-04-17] MEDS ORDERED: Albuterol-Ipratrop 3 mg / 0.5 (3 ml) UD INH STA (12:12)
[2018-04-17] MEDS ORDERED: Magnesium Sulfate 2 GM in Sodium Chloride 0.9% 100 ML IVPB ONE (12:13)
[2018-04-17] MEDS ORDERED: Sodium Chloride 0.9% 1,000 ML IV STA (12:14)
[2018-04-17 12:28] LABS: ABG ALLEN TEST YES; ARTERIAL BLOOD GAS HCO3 28.2 mmol/L (21-28); ARTERIAL BLOOD GAS O2 SAT 97.4 % (95-98); ARTERIAL BLOOD GAS PCO2 47 mm/Hg (35-45); ARTERIAL BLOOD GAS PH 7.41 (7.35-7.45); ARTERIAL BLOOD GAS PO2 78 mm/Hg (80-100); ARTERIAL BLOOD GAS TCO2 31.2 mmol/L (22-28)
[2018-04-17] MEDS ORDERED: Magnesium Sulfate 2 gm/50 ml 2 GM/50 ML BAG ONE (12:38)
[2018-04-17] MEDS ORDERED: Magnesium Sulfate 2 gm/50 ml 2 GM/50 ML BAG IV ONE (13:00)
[2018-04-17 13:06] LABS: BASO % 0.7 % (0.0-2.0); EOS # 0.1 K/uL (0.0-0.7); EOS % 1.1 % (0.0-4.0); HEMOGLOBIN 13.9 g/dL (12.0-16.0); LYMPH # 0.7 K/uL (1.0-4.3); LYMPH % 9.2 % (20.0-40.0); MEAN CELL VOLUME 89.4 fl (81.0-99.0); MEAN CORPUSCULAR HEMOGLOBIN 30.7 pg (27.0-31.0); MEAN CORPUSCULAR HGB CONC 34.4 g/dL (33.0-37.0); MEAN PLATELET VOLUME 7.8 fl (7.2-11.7); MONO # 0.3 K/uL (0.0-0.8); MONO % 3.6 % (0.0-10.0); NEUT # 6.3 K/uL (1.8-7.0); NEUT % 85.4 % (50.0-75.0); NRBC % 0.1 % (0.0-0.0); PLATELET COUNT 256 K/uL (130-400); RBC 4.51 Mil/uL (3.80-5.20); WHITE BLOOD COUNT 7.3 K/uL (4.8-10.8)
--- NOTE | 2018-04-17 13:09 | ED PDOC ---
HPI: SOB/CHF/COPD Time Seen by Provider: 04/17/18 11:57 Chief Complaint (Nursing): Shortness Of Breath Chief Complaint (Provider): Shortness Of Breath History Per: Patient History/Exam Limitations: no limitations Onset/Duration Of Symptoms: Days (4) Associated Symptoms: Other (cough, increase oxygen need). denies: Fever Additional Complaint(s): 58 years old female with history of asthma, COPD and lung cancer presents to the ED for evaluation of shortness of breath and increase oxygen need at home associated with cough onset 4 days. Patient reports she started on 2 L of oxygen intake as usual but had to take about 2.5 to 3 L to become comfortable. She states she is not eating as usual. Patient lives in [place], visits her son in [place] and receives treatment for lung cancer at [facility]. Patient reports she called her PMD who recommender to come and check if she has pneumonia. She denies any fever, nausea or vomiting. 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) Denies: HIV, Chronic Kidney Disease Other PMH: Lung Cancer - Surgical History Surgical History: No Surg Hx - Family History Family History: States: Unknown Family Hx - Social History Current smoker - smoking cessation education provided: No (Former, quit 2 years ago) Alcohol: None Drugs: Denies - Immunization History Hx Tetanus Toxoid Vaccination: Yes - Home Medications Home Medications: Ambulatory Orders Medication Instructions Recorded ALPRAZolam [Xanax] 1 mg PO TID PRN #10 tab 09/29/15 Albuterol HFA [Ventolin HFA 90 2 puff IH Q6H PRN 12/19/15 mcg/actuation (8 g)] Hydrocodone/Acetaminophen [[place] 1 tab PO Q4H PRN 12/19/15 10-325 Tablet] Cephalexin [Keflex] 500 mg PO QID #20 capsule 11/25/16 Ibuprofen [Motrin] 600 mg PO Q8 PRN #15 tab 11/25/16 Clindamycin [Cleocin] 300 mg PO QID #40 cap 04/24/17 Clindamycin [Cleocin] 450 mg PO TID #87 cap 10/19/17 LORazepam [Ativan] 1 mg PO TID PRN #15 tab 10/19/17 Albuterol HFA [Ventolin HFA 90 2 puff IH Q8WIGBS #1 puff 03/03/18 mcg/actuation (8 g)] Dexamethasone [Decadron] 4 mg PO DAILY #4 tab 03/03/18 - Allergies Allergies/Adverse Reactions: Allergies Allergy/AdvReac Type Severity Reaction Status Date / Time naproxen [From Naprosyn] Allergy RASH Verified 03/03/18 17:53 prednisone Allergy RASH Verified 03/03/18 17:53 Review of Systems ROS Statement: Except As Marked, All Systems Reviewed And Found Negative Constitutional: Negative for: Fever Respiratory: Positive for: Cough, Shortness of Breath, Other (Laboring) Gastrointestinal: Negative for: Nausea, Vomiting Physical Exam - Reviewed Nursing Documentation Reviewed: Yes Vital Signs Reviewed: Yes - Physical Exam Appears: Positive for: Non-toxic Cardiovascular/Chest: Positive for: Regular Rate, Rhythm. Negative for: Murmur Respiratory: Positive for: Wheezing (diffused bilateral inspiratory and expiratory). Negative for: Rales Gastrointestinal/Abdominal: Positive for: Normal Exam, Soft. Negative for: Tenderness Back: Positive for: Normal Inspection Extremity: Positive for: Normal ROM. Negative for: Tenderness, Swelling Neurologic/Psych: Positive for: Alert, Oriented (x3), Other (Speaks full sentences) - Laboratory Results Result Diagrams: 04/17/18 12:50 04/17/18 12:50 - ECG O2 Sat by Pulse Oximetry: 95 (RA) Pulse Ox Interpretation: Normal - Radiology X-Ray: Viewed By Sd X-Ray Interpretation: No Acute Disease - Progress Re-evaluation Time: 14:00 Condition: Re-examined, Unchanged - Critical Care Total Time (In Min): 30 Medical Decision Making Medical Decision Making: Time: 1210 Initial Impression: COPD exacerbation vs, pneumonia, Bronchitis, pneumothorax Initial Plan: --Labs --Chest x-ray --Decadron Inj 10 mg IV --Albuterol 3 ml IN --Magnesium Sulfate 2 gm IVPB --Peak flow pre/post treatment ----- Scribe Attestation: Documented by Ivanna Conklin, acting as a scribe for Chelsea Giordano MD. Provider Scribe Attestation: All medical record entries made by the Scribe were at my direction and personally dictated by me. I have reviewed the chart and agree that the record accurately reflects my personal performance of the history, physical exam, medical decision making, and the department course for this patient. I have also personally directed, reviewed, and agree with the discharge instructions and disposition. Disposition - Clinical Impression Clinical Impression: COPD exacerbation, Lung cancer - Patient ED Disposition Is Patient to be Admitted: Yes Doctor Will See Patient In The: Hospital - Disposition Disposition: Transfer of Care Disposition Time: 14:00 Condition: FAIR Instructions: Lung Cancer, Exacerbation of COPD (DC) Forms: [employer] ([employer]) (Amharic) - Pt Status Changed To: Hospital Disposition Of: Inpatient - Admit Certification Admit to Inpatient:: After my assessment, the patient will require hospitalization for at least two midnights. This is because of the severity of symptoms shown, intensity of services needed, and/or the medical risk in this patient being treated as an outpatient.
[2018-04-17 13:16] LABS: ALB/GLOB RATIO 1.6 (1.0-2.1); ALBUMIN 4.5 g/dL (3.5-5.0); ALT/SGPT 28 U/L (9-52); AST/SGOT 31 U/L (14-36); BLOOD UREA NITROGEN 16 mg/dl (7-17); CALCIUM 9.7 mg/dL (8.4-10.2); GFR NON-AFRICAN AMERICAN 57
--- NOTE | 2018-04-17 13:42 | RAD ---
Date of service: 04/17/2018 HISTORY: Dyspnea, increased O2 need, COPD/lung CA. COMPARISON: 03/08/2018. TECHNIQUE: Chest PA and lateral FINDINGS: LUNGS: No active pulmonary disease. PLEURA: No significant pleural effusion identified. No pneumothorax apparent. CARDIOVASCULAR: No radiographic findings to suggest acute or significant cardiovascular disease. OSSEOUS STRUCTURES: No significant abnormalities. VISUALIZED UPPER ABDOMEN: Normal. OTHER FINDINGS: None. IMPRESSION: No active disease. No significant interval change compared to the prior examination(s).
[2018-04-17 14:32] LABS: BANDS 2 % (0-2); LYMPHOCYTE 14 % (20-50); MONOCYTE 3 % (0-10); NEUTROPHIL 81 % (42-75); PLATELET ESTIMATE NORMAL (NORMAL); TOTAL CELLS COUNTED 100
[2018-04-17] MEDS ORDERED: guaiFENesin 100 mg/5 ml Syrup UD PO PRN (16:20)
[2018-04-17] MEDS ORDERED: Albuterol HFA 90 mcg/actuation (8 g) IH PRN (16:20)
[2018-04-17] MEDS: guaiFENesin 200 mg/10 ml Syrup UD PO PRN (17:53)
[2018-04-17] MEDS ORDERED: Albuterol-Ipratrop 3 mg / 0.5 (3 ml) UD INH PRN (17:59)
--- NOTE | 2018-04-17 19:38 | CP.PCM.HP ---
<Bar Costa - Last Filed: 04/17/18 19:34> History of Present Illness - History of Present Illness History of Present Illness: 58 yo F with pmhx of squamous cell carcinoma of head and neck presents with a 1 week history of SOB and yellow sputum, requiring home O2 AT 3L. Pt lives in [place] and is a patient at [facility]. Of note within the past 2 months had pneumonitis treated with decadron taper. Onc: Loren jordan [phone] famhx: cancer, CAD, dm soc: denies smoking, alcohol, illicit drugs surg: none allergies to Prednisone: causes her to experience sleeplessness No allergy to decadron; currently taking as op managment Present on Admission - Present on Admission Any Indicators Present on Admission: No History of Uncontrolled Diabetes: No Review of Systems - Cardiovascular Cardiovascular: absent: Chest Pain - Respiratory Respiratory: Cough, Dyspnea, Wheezing - Gastrointestinal Gastrointestinal: absent: Abdominal Pain Past Patient History - Infectious Disease Hx of Infectious Diseases: None - Past Medical History & Family History Past Medical History?: Yes - Past Social History Smoking Status: Never Smoked Alcohol: None Drugs: Denies Home Situation {Lives}: Alone - CARDIAC Hx Hypertension: Yes - PULMONARY Hx Asthma: Yes Hx Bronchitis: Yes Hx Chronic Obstructive Pulmonary Disease (COPD): Yes Hx Lung Cancer: Yes Hx Pneumonia: Yes - NEUROLOGICAL Hx Neurological Disorder: No - HEENT Hx HEENT Problems: No - RENAL Hx Chronic Kidney Disease: No - ENDOCRINE/METABOLIC Hx Endocrine Disorders: No - HEMATOLOGICAL/ONCOLOGICAL Hx Human Immunodeficiency Virus (HIV): No - INTEGUMENTARY Hx Dermatological Problems: No Hx Squamous Cell: Yes Other/Comment: 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 - MUSCULOSKELETAL/RHEUMATOLOGICAL Hx Musculoskeletal Disorders: No Hx Falls: No - GASTROINTESTINAL Hx Gastrointestinal Disorders: No - GENITOURINARY/GYNECOLOGICAL Hx Genitourinary Disorders: No - PSYCHIATRIC Hx Psychophysiologic Disorder: No Hx Substance Use: No - SURGICAL HISTORY Hx Surgeries: No Other/Comment: biopsy - ANESTHESIA Hx Anesthesia: No Meds Allergies/Adverse Reactions: Allergies Allergy/AdvReac Type Severity Reaction Status Date / Time naproxen [From Naprosyn] Allergy RASH Verified 03/03/18 17:53 prednisone Allergy RASH Verified 03/03/18 17:53 Physical Exam - Constitutional Appears: No Acute Distress - Eye Exam Eye Exam: EOMI - ENT Exam ENT Exam: Mucous Membranes Moist - Respiratory Exam Respiratory Exam: Rhonchi, Wheezes, NORMAL BREATHING PATTERN - Cardiovascular Exam Cardiovascular Exam: +S1, +S2 - GI/Abdominal Exam GI & Abdominal Exam: Normal Bowel Sounds, Soft. absent: Tenderness - Neurological Exam Neurological exam: Alert, CN II-XII Intact, Oriented x3 - Psychiatric Exam Psychiatric exam: Normal Affect, Normal Mood Results - Vital Signs Recent Vital Signs: Last Vital Signs Temp 98.0 F 04/17/18 16:54 Pulse 75 04/17/18 16:54 Resp 20 04/17/18 16:50 BP 114/70 04/17/18 16:54 Pulse Ox 97 04/17/18 16:36 - Labs Result Diagrams: 04/17/18 12:50 04/17/18 12:50 Labs: Laboratory Results - last 24 hr 04/17/18 04/17/18 04/17/18 12:20 12:50 12:50 WBC 7.3 RBC 4.51 Hgb 13.9 Hct 40.3 MCV 89.4 MCH 30.7 MCHC 34.4 RDW 14.0 Plt Count 256 MPV 7.8 Neut % (Auto) 85.4 H Lymph % (Auto) 9.2 L [place] % (Auto) 3.6 Eos % (Auto) 1.1 Baso % (Auto) 0.7 Neut # (Auto) 6.3 Lymph # (Auto) 0.7 L [place] # (Auto) 0.3 Eos # (Auto) 0.1 Baso # (Auto) 0.0 Neutrophils % (Manual) 81 H Band Neutrophils % 2 Lymphocytes % (Manual) 14 L Monocytes % (Manual) 3 Platelet Estimate Normal RBC Morphology Normal pCO2 47 H pO2 78 L HCO3 28.2 H ABG pH 7.41 ABG Total CO2 31.2 H ABG O2 Saturation 97.4 ABG Base Excess 4.3 H Dennis Test Yes ABG Potassium 3.7 A-a O2 Difference 63.0 Sodium 134.0 138 Chloride 102.0 100 Glucose 147 H Lactate 0.8 Vent Mode 2lnc FiO2 28.0 Potassium 4.5 Carbon Dioxide 31 H Anion Gap 12 BUN 16 Creatinine 1.0 Est GFR ( Amer) > 60 Est GFR (Non-Af Amer) 57 Random Glucose 128 H Calcium 9.7 Total Bilirubin 0.5 AST 31 ALT 28 Alkaline Phosphatase 63 Troponin I < 0.0120 Total Protein 7.2 Albumin 4.5 Globulin 2.7 Albumin/Globulin Ratio 1.6 Arterial Blood Potassium 3.7 Assessment & Plan - Assessment and Plan (Free Text) Plan: 58 yo F with pmhx of squamous cell carcinoma of head and neck admitted for SOB Pulm: Dr. Escudero consulted: recommendations appreciated chest ct w/o contrast duoneb nc 2L home meds resumed r/o pneumonitis/bronchitis/copd exacerbation case dw Dr. Nichol Costa MD PGY2 <Tristan Gandara - Last Filed: 04/18/18 21:08> Results - Vital Signs Recent Vital Signs: Last Vital Signs Temp 98.4 F 04/18/18 20:04 Pulse 72 04/18/18 20:04 Resp 16 04/18/18 20:04 BP 116/72 04/18/18 20:04 Pulse Ox 95 04/18/18 20:04 - Labs Result Diagrams: 04/17/18 12:50 04/17/18 12:50 Labs: Laboratory Results - last 24 hr 04/18/18 04/18/18 08:12 15:47 pCO2 41 pO2 55 L HCO3 29.1 H ABG pH 7.47 H ABG Total CO2 31.1 H ABG O2 Saturation 92.8 L ABG O2 Content 16.0 ABG Base Excess 5.6 H ABG Hemoglobin 12.6 ABG Carboxyhemoglobin 1.2 POC ABG HHb (Measured) 7.0 H ABG Methemoglobin 1.4 ABG O2 Capacity 17.2 Dennis Test Yes A-a O2 Difference 43.0 Hgb O2 Saturation 90.5 L Vent Mode Room air FiO2 21.0 Vitamin B12 505 TSH 3rd Generation 1.43 Assessment & Plan - Assessment and Plan (Free Text) Plan: Patient was personally seen and examined by me in rounds with residents. Available labs and diagnostic data reviewed. Case, Patient's condition and management plan discussed with residents in rounds. Agree with resident's progress note. Plan: As ordered.
[2018-04-18] MEDS: guaiFENesin 200 mg/10 ml Syrup UD PO PRN ×3 (04:42→22:18)
[2018-04-18] MEDS: Levothyroxine 25 MCG TAB PO SCH (07:00)
[2018-04-18] MEDS: Albuterol-Ipratrop 3 mg / 0.5 (3 ml) UD INH SCH ×4 (08:09→19:17)
--- NOTE | 2018-04-18 14:07 | PN ---
DATE: 04/18/2018 SUBJECTIVE: The patient seen and examined. Interim events noted. The patient remains in progressive care unit, on telemetry monitoring. She complains of hard breathing, but no chest pain. PHYSICAL EXAMINATION: GENERAL: The patient is chronically sick-looking, but in no distress. VITAL SIGNS: Stable. HEART: S1 and S2, normal and regular. LUNGS: The patient still has poor air exchange and occasional rhonchi consistent with COPD exacerbation. ABDOMEN: Soft, nontender. No organomegaly. No fluid. Bowel sounds are plus and normal. EXTREMITY: No edema. No calf swelling. No tenderness. No acute ischemia. SALT MANAGER: Exam is essentially unchanged. DIAGNOSTIC DATA: Available diagnostic data reviewed. Telemetry monitoring does not reveal significant arrhythmias. ASSESSMENT AND PLAN: Overall, the patient's general medical condition is stable chronic obstructive pulmonary disease exacerbation. Plan as ordered. Tristan Gandara MD
[2018-04-18] MEDS ORDERED: Sodium Chloride 3% for Inhalation 4 ML VIAL.NEB IH PRN (15:09)
--- NOTE | 2018-04-18 15:22 | CP.PCM.CON ---
History of Present Illness - History of Present Illness History of Present Illness: Pulmonary consult for a 58 y/o F, PMHx Squasmous Cell Carcinoma of Head/Neck Tx with Chemo, now on remission, Pt from [place], Tx at [facility] , also Hx of Bronchitis 2 month ago Tx in hospital with Decadron taper. 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 Pt was advised by PMD to come to hospital for further Tx and to r/o PNA. Worsening symptoms: PENA. Aggravated factor: Movement/exercise. Pt denied: Hx of COPD, fever, chills, n/v/d, abdominal pain, urinary symptoms, CP, palpitations, syncope, bloody cough, sick contact, recent travel out of [facility]. CXR: No active disease. EKG: Normal sinus rhythm. Review of Systems - Constitutional Constitutional: Headache - EENT Eyes: Other (negative) Ears: Other (negative) Nose/Mouth/Throat: Other (negative) - Cardiovascular Cardiovascular: Other (negative) - Respiratory Respiratory: Cough, Dyspnea, Dyspnea on Exertion, Wheezing, Chest Congestion - Gastrointestinal Gastrointestinal: Other (negative) - Genitourinary Genitourinary: Other (negative) - Musculoskeletal Musculoskeletal: Neck Pain (2nd to Ca) - Integumentary Integumentary: Other (negative) - Neurological Neurological: Other (negative) - Psychiatric Psychiatric: Anxiety - Endocrine Endocrine: Other (negative) - Hematologic/Lymphatic Hematologic: As Per HPI Past Patient History - Infectious Disease Hx of Infectious Diseases: None - Past Medical History & Family History Past Medical History?: Yes Pertinent Family History: Hx Cancer, DM, CAD - Past Social History Smoking Status: Never Smoked Alcohol: None Drugs: Denies Home Situation {Lives}: Alone - CARDIAC Hx Cardiac Disorders: Yes Hx Hypertension: Yes - PULMONARY Hx Respiratory Disorders: Yes Hx Asthma: Yes Hx Bronchitis: Yes Hx Pneumonia: Yes - NEUROLOGICAL Hx Neurological Disorder: No - HEENT Hx HEENT Problems: No - RENAL Hx Chronic Kidney Disease: No - ENDOCRINE/METABOLIC Hx Endocrine Disorders: No - HEMATOLOGICAL/ONCOLOGICAL Hx Human Immunodeficiency Virus (HIV): No - INTEGUMENTARY Hx Dermatological Problems: No Hx Squamous Cell: Yes Other/Comment: 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 - MUSCULOSKELETAL/RHEUMATOLOGICAL Hx Musculoskeletal Disorders: No Hx Falls: No - GASTROINTESTINAL Hx Gastrointestinal Disorders: No - GENITOURINARY/GYNECOLOGICAL Hx Genitourinary Disorders: No - PSYCHIATRIC Hx Psychophysiologic Disorder: No Hx Substance Use: No - SURGICAL HISTORY Hx Surgeries: Yes Other/Comment: biopsy neck - ANESTHESIA Hx Anesthesia: No Meds Allergies/Adverse Reactions: Allergies Allergy/AdvReac Type Severity Reaction Status Date / Time naproxen [From Naprosyn] Allergy RASH Verified 03/03/18 17:53 prednisone Allergy RASH Verified 03/03/18 17:53 budesonide [From Pulmicort] AdvReac SHORTNESS Verified 04/19/18 19:45 OF BREATH - Medications Medications: Current Medications Albuterol (Ventolin Hfa 90 Mcg/Actuation (8 G)) 2 puff IH Q6H PRN PRN Reason: Wheezing Albuterol/Ipratropium (Duoneb 3 Mg/0.5 Mg (3 Ml) Ud) 3 ml INH RQ6 JOHN Dexamethasone (Decadron Inj) 4 mg IV Q8H [facility] Docusate Sodium (Colace) 100 mg PO BID [facility] Last Admin: 04/18/18 08:14 Dose: 100 mg Guaifenesin (Robitussin) 200 mg PO Q4H PRN PRN Reason: Cough Last Admin: 04/18/18 13:30 Dose: 200 mg Azithromycin 500 mg/ Sodium (Chloride) 250 mls @ 250 mls/hr IVPB DAILY JOHN PRN Reason: Protocol Levothyroxine Sodium (Synthroid) 25 mcg PO DAILY@0630 [facility] Last Admin: 04/18/18 07:00 Dose: 25 mcg Lorazepam (Ativan) 1 mg PO TID [facility] Last Admin: 04/18/18 13:29 Dose: 1 mg Ondansetron HCl (Zofran Tab) 8 mg PO Q8 PRN PRN Reason: Nausea/Vomiting Physical Exam - Constitutional Appears: Chronically Ill - Head Exam Head Exam: NORMAL INSPECTION - Eye Exam Eye Exam: PERRL - ENT Exam ENT Exam: Normal Exam - Neck Exam Neck exam: Positive for: Normal Inspection - Respiratory Exam Respiratory Exam: Decreased Breath Sounds (at bases), Rhonchi, Wheezes - Cardiovascular Exam Cardiovascular Exam: REGULAR RHYTHM - GI/Abdominal Exam GI & Abdominal Exam: Normal Bowel Sounds, Soft - Extremities Exam Extremities exam: Positive for: normal inspection - Back Exam Back exam: NORMAL INSPECTION - Neurological Exam Neurological exam: Alert, Oriented x3 Additional comments: No motor/sensory deficit. - Psychiatric Exam Psychiatric exam: Anxious - Skin Skin Exam: Warm Results - Vital Signs Recent Vital Signs: Last Vital Signs Temp 98.0 F 04/18/18 12:07 Pulse 84 04/18/18 12:07 Resp 18 04/18/18 12:07 BP 120/80 04/18/18 12:07 Pulse Ox 94 L 04/18/18 12:07 reviewed J.P. - Labs Result Diagrams: 04/19/18 04:10 04/19/18 04:10 Labs: Laboratory Results - last 24 hr 04/18/18 08:12 Vitamin B12 505 TSH 3rd Generation 1.43 reviewed J.P. - EKG Data EKG comments: reviewed J.P. - Imaging and Cardiology Chest x-ray Status: Report reviewed by me (Rik) Assessment & Plan (1) Asthmatic bronchitis Status: Acute Priority: High (2) Hx of squamous cell carcinoma Status: Acute Priority: High Comment: Head and neck. - Assessment and Plan (Free Text) Plan: F/U CT Chest, Sputum C-S, continue Zithromax, Duoneb, Robitussin and rest of Tx. - Date & Time Date: 04/18/18
[2018-04-18 16:10] LABS: ABG ALLEN TEST YES; ARTERIAL BLOOD GAS HCO3 29.1 mmol/L (21-28); ARTERIAL BLOOD GAS HEMOGLOBIN 12.6 g/dL (11.7-17.4); ARTERIAL BLOOD GAS O2 CAPACITY 17.2 mL/dL (16-24); ARTERIAL BLOOD GAS O2 SAT 92.8 % (95-98); ARTERIAL BLOOD GAS PCO2 41 mm/Hg (35-45); ARTERIAL BLOOD GAS PH 7.47 (7.35-7.45); ARTERIAL BLOOD GAS PO2 55 mm/Hg (80-100); ARTERIAL BLOOD GAS TCO2 31.1 mmol/L (22-28)
--- NOTE | 2018-04-18 16:19 | CT ---
Date of service: 04/18/2018 PROCEDURE: CT Chest without contrast HISTORY: crackles, sob, hx pneumonitis/bronchitis COMPARISON: Chest x-ray 04/17/2018 TECHNIQUE: Contiguous axial images were obtained through the chest without intravenous contrast enhancement. Sagittal and coronal reconstructions were performed. Radiation dose (DLP): 216 mGy-cm. This CT exam was performed using one or more of the following dose reduction techniques: Automated exposure control, adjustment of the mA and/or kV according to patient size, and/or use of iterative reconstruction technique. FINDINGS: LUNGS: No focal segmental or subsegmental infiltrate appreciated. No appreciable endobronchial lesions. Mild nonspecific interstitial change and interlobular thickening including some mild linear areas of subtle scarring posteriorly at the lung bases. Mild bronchial thickening without significant bronchiectasis. Small area reticular nodular changes seen in the subpleural region of the left upper lobe on axial images thirty-two through 40. No pulmonary nodule seen. No significant mosaic ground-glass pattern to suggest alveolitis or air trapping. Clear lungs. Visualized airway clear. MEDIASTINUM: Unremarkable thoracic aorta. No aneurysm. Normal sized heart. There is limited evaluation of the pulmonary arteries although they appear normal in size. Mild atherosclerotic change of the ascending aorta. In addition there appears to be the suggestion of coronary artery calcification which should be further followed clinically. No appreciable mediastinal or hilar adenopathy on this noncontrast exam. PLEURA: No pleural fluid. No pneumothorax. BONES: No fracture. No destructive lesion. UPPER ABDOMEN: There is evidence of a large lamellated calcified gallstone in the gallbladder. Very mild chronic gallbladder wall thickening is not excluded although no pericholecystic fluid is seen. Remainder of the upper abdomen is unremarkable. Visualized esophagus is normal in outline. OTHER FINDINGS: None. IMPRESSION: No evidence of alveolar infiltrate. Mild nonspecific interstitial change with mild interlobular thickening. Small area of nonspecific reticular interstitial subpleural and interlobular change seen in the anterior left upper lobe. This may reflect a small subtle area of mild superimposed infection or inflammatory change. No evidence of alveolitis or significant bronchiectasis. Coronary artery calcification. No pleural effusion or CHF.
[2018-04-18] MEDS ORDERED: Dexamethasone 4 MG in Sodium Chloride 0.9% 50 ML IVPB SCH (17:00)
[2018-04-18] MEDS: Dexamethasone 4 mg/1 ml IV SCH (17:04)
--- NOTE | 2018-04-18 17:42 | CARD ---
APPROVED REPORT Date of service: 04/17/2018 <Conclusion> Normal sinus rhythm Normal ECG
[2018-04-18] MEDS: oxyCODONE 5 mg Immediate Release Tab PO PRN ×2 (18:00→22:18)
[2018-04-19] MEDS: Dexamethasone 4 mg/1 ml IV SCH ×3 (00:52→16:05)
[2018-04-19] MEDS: Albuterol-Ipratrop 3 mg / 0.5 (3 ml) UD INH SCH ×4 (02:48→19:16)
[2018-04-19 04:57] LABS: HEMOGLOBIN 12.4 g/dL (12.0-16.0); MEAN CELL VOLUME 90.7 fl (81.0-99.0); MEAN CORPUSCULAR HGB CONC 34.2 g/dL (33.0-37.0); RBC 3.99 Mil/uL (3.80-5.20)
[2018-04-19 05:05] LABS: ALB/GLOB RATIO 1.3 (1.0-2.1); ALBUMIN 3.8 g/dL (3.5-5.0); ALT/SGPT 28 U/L (9-52); AST/SGOT 19 U/L (14-36); BLOOD UREA NITROGEN 22 mg/dl (7-17); CALCIUM 9.3 mg/dL (8.4-10.2); GFR NON-AFRICAN AMERICAN 57
[2018-04-19] MEDS: Levothyroxine 25 MCG TAB PO SCH (07:29)
[2018-04-19] MEDS: Azithromycin 500 MG in Sodium Chloride 0.9% 250 ML IVPB SCH (08:54)
--- NOTE | 2018-04-19 10:46 | PN ---
DATE: 04/19/2018 SUBJECTIVE: The patient is seen and examined. Interim events noted. Pulmonary consult is pending. The patient remains in progressive care unit on telemetry monitoring. The patient still has little cough. No chest pain. No shortness of breath. The patient has other general pains, which are controlled with pain medication, which was held on outpatient, which was restarted. PHYSICAL EXAMINATION: GENERAL: The patient is in no acute distress. VITAL SIGNS: Stable. HEART: S1, S2, normal and regular. LUNGS: Good bilateral air exchange. ABDOMEN: Soft, nontender. EXTREMITIES: No edema, no calf swelling, no tenderness, no acute ischemia. LOAD MANAGER: Exam is essentially unchanged. DIAGNOSTIC DATA: Available diagnostic data reviewed. ASSESSMENT AND PLAN: Overall, the patient's general medical condition is stable. Plan as ordered. Tristan Gandara MD
--- NOTE | 2018-04-19 15:11 | CP.PCM.PN ---
Subjective - Date & Time of Evaluation Date of Evaluation: 04/19/18 Time of Evaluation: 14:40 - Subjective Subjective: F/U Asthmatic Bronchitis. Pt doing better, smiling, off O2 NC, no SOB. Objective - Vital Signs/Intake and Output Vital Signs (last 24 hours): Temp Pulse Resp BP Pulse Ox 98.1 F 79 20 123/71 95 04/19/18 08:35 04/19/18 08:35 04/19/18 08:35 04/19/18 08:35 04/19/18 08:35 - Medications Medications: Current Medications Acetaminophen (Tylenol 325mg Tab) 650 mg PO Q6 PRN PRN Reason: Pain, Mild (1-3) Albuterol (Ventolin Hfa 90 Mcg/Actuation (8 G)) 2 puff IH Q6H PRN PRN Reason: Wheezing Albuterol/Ipratropium (Duoneb 3 Mg/0.5 Mg (3 Ml) Ud) 3 ml INH RQ6 [facility] Last Admin: 04/19/18 13:44 Dose: 3 ml Budesonide (Pulmicort Respules) 0.5 mg IH Q12 [facility] Dexamethasone (Decadron Inj) 4 mg IV Q8H [facility] Last Admin: 04/19/18 08:52 Dose: 4 mg Docusate Sodium (Colace) 100 mg PO BID [facility] Last Admin: 04/19/18 08:51 Dose: 100 mg Guaifenesin (Robitussin) 200 mg PO Q4H PRN PRN Reason: Cough Last Admin: 04/18/18 22:18 Dose: 200 mg Azithromycin 500 mg/ Sodium (Chloride) 250 mls @ 250 mls/hr IVPB DAILY [facility] PRN Reason: Protocol Last Admin: 04/19/18 08:54 Dose: 250 mls/hr Ibuprofen (Motrin Tab) 400 mg PO Q4 PRN PRN Reason: Pain, Mild (1-3) Levothyroxine Sodium (Synthroid) 25 mcg PO DAILY@0630 [facility] Last Admin: 04/19/18 07:29 Dose: 25 mcg Lorazepam (Ativan) 1 mg PO TID [facility] Last Admin: 04/19/18 08:51 Dose: 1 mg Ondansetron HCl (Zofran Tab) 8 mg PO Q8 PRN PRN Reason: Nausea/Vomiting Oxycodone HCl (Oxycodone Immediate Release Tab) 15 mg PO Q4 PRN PRN Reason: Pain, severe (8-10) Last Admin: 04/18/18 22:18 Dose: 15 mg - Labs Labs: 04/19/18 04:10 04/19/18 04:10 - Constitutional Appears: Chronically Ill - Head Exam Head Exam: NORMAL INSPECTION - Eye Exam Eye Exam: PERRL - ENT Exam ENT Exam: Normal Exam - Neck Exam Additional comments: Scar in R neck 2nd to Hx of radiation - Respiratory Exam Respiratory Exam: Wheezes (b/l) - Cardiovascular Exam Cardiovascular Exam: REGULAR RHYTHM - GI/Abdominal Exam GI & Abdominal Exam: Soft, Normal Bowel Sounds - Extremities Exam Extremities Exam: Normal Inspection - Back Exam Back Exam: NORMAL INSPECTION - Neurological Exam Neurological Exam: Alert, Oriented x3. absent: Motor Sensory Deficit - Psychiatric Exam Psychiatric exam: Anxious - Skin Skin Exam: Warm Assessment and Plan (1) Asthmatic bronchitis Status: Acute (2) Hx of squamous cell carcinoma Status: Acute - Assessment and Plan (Free Text) Plan: Continue Decadron , Duoneb, Zithromax, Robitussin, CT Sinus.
[2018-04-19] MEDS ORDERED: Budesonide 0.5 mg/2 ml Inhal Susp UD IH SCH (21:00)
[2018-04-20] MEDS: Dexamethasone 4 mg/1 ml IV SCH ×3 (00:35→21:30)
[2018-04-20] MEDS: Albuterol-Ipratrop 3 mg / 0.5 (3 ml) UD INH SCH ×4 (01:00→19:19)
[2018-04-20 05:35] LABS: HEMOGLOBIN 13.2 g/dL (12.0-16.0); MEAN CELL VOLUME 91.5 fl (81.0-99.0); MEAN CORPUSCULAR HEMOGLOBIN 30.4 pg (27.0-31.0); MEAN CORPUSCULAR HGB CONC 33.2 g/dL (33.0-37.0); RBC 4.34 Mil/uL (3.80-5.20); RED CELL DISTRIBUTION WIDTH 14.2 % (11.5-14.5); WHITE BLOOD COUNT 9.4 K/uL (4.8-10.8)
[2018-04-20] MEDS: guaiFENesin 200 mg/10 ml Syrup UD PO PRN ×2 (05:38→11:10)
[2018-04-20] MEDS: oxyCODONE 5 mg Immediate Release Tab PO PRN (05:39)
[2018-04-20] MEDS: Levothyroxine 25 MCG TAB PO SCH (05:40)
[2018-04-20 06:10] LABS: ALB/GLOB RATIO 1.4 (1.0-2.1); ALT/SGPT 26 U/L (9-52); AST/SGOT 26 U/L (14-36); BLOOD UREA NITROGEN 20 mg/dl (7-17); CALCIUM 9.7 mg/dL (8.4-10.2); GFR NON-AFRICAN AMERICAN > 60
[2018-04-20] MEDS: Azithromycin 500 MG in Sodium Chloride 0.9% 250 ML IVPB SCH (08:11)
[2018-04-20] MEDS ORDERED: guaiFENesin DM 200 mg-20 mg/10 ml UD PO PRN (14:07)
[2018-04-20] MEDS ORDERED: Dexamethasone 4 mg/1 ml IV SCH ×2 (16:00→21:00)
--- NOTE | 2018-04-20 19:49 | CP.PCM.PN ---
<Linda Scott - Last Filed: 04/20/18 19:47> Subjective - Date & Time of Evaluation Date of Evaluation: 04/20/18 Time of Evaluation: 17:00 - Subjective Subjective: feeling better, no SOB, still have cough occ., eating well, no fever Objective - Vital Signs/Intake and Output Vital Signs (last 24 hours): Temp Pulse Resp BP Pulse Ox 98.2 F 91 H 20 126/75 97 04/20/18 15:59 04/20/18 15:59 04/20/18 15:59 04/20/18 15:59 04/20/18 15:59 - Medications Medications: Current Medications Acetaminophen (Tylenol 325mg Tab) 650 mg PO Q6 PRN PRN Reason: Pain, Mild (1-3) Albuterol (Ventolin Hfa 90 Mcg/Actuation (8 G)) 2 puff IH Q6H PRN PRN Reason: Wheezing Albuterol/Ipratropium (Duoneb 3 Mg/0.5 Mg (3 Ml) Ud) 3 ml INH RQ6 [facility] Last Admin: 04/20/18 19:19 Dose: Not Given Dexamethasone (Decadron Inj) 4 mg IV Q12 [facility] Docusate Sodium (Colace) 100 mg PO BID [facility] Last Admin: 04/20/18 16:32 Dose: 100 mg Famotidine (Pepcid) 40 mg PO HS [facility] Guaifenesin/Dextromethorphan (Robitussin Dm) 10 ml PO Q4 PRN PRN Reason: Cough Azithromycin 500 mg/ Sodium (Chloride) 250 mls @ 250 mls/hr IVPB DAILY [facility] PRN Reason: Protocol Stop: 04/21/18 09:59 Ibuprofen (Motrin Tab) 400 mg PO Q4 PRN PRN Reason: Pain, Mild (1-3) Last Admin: 04/20/18 11:11 Dose: 400 mg Levothyroxine Sodium (Synthroid) 25 mcg PO DAILY@0630 [facility] Last Admin: 04/20/18 05:40 Dose: 25 mcg Lorazepam (Ativan) 1 mg PO TID@0900,1500,2100 [facility] Last Admin: 04/20/18 16:32 Dose: 1 mg Ondansetron HCl (Zofran Tab) 8 mg PO Q8 PRN PRN Reason: Nausea/Vomiting Oxycodone HCl (Oxycodone Immediate Release Tab) 15 mg PO Q4 PRN PRN Reason: Pain, severe (8-10) Last Admin: 04/20/18 05:39 Dose: 15 mg - Labs Labs: 04/20/18 04:20 04/20/18 04:20 - Constitutional Appears: Well, No Acute Distress - Head Exam Head Exam: ATRAUMATIC - Eye Exam Eye Exam: EOMI, Normal appearance - ENT Exam ENT Exam: Mucous Membranes Moist - Neck Exam Neck Exam: Full ROM Additional comments: old scar to anterior neck - Respiratory Exam Respiratory Exam: Wheezes (mild exp wheezes R lung, breathing room air, speaking full sentense ) - GI/Abdominal Exam GI & Abdominal Exam: Soft, Normal Bowel Sounds - Extremities Exam Extremities Exam: Full ROM, Normal Inspection - Back Exam Back Exam: NORMAL INSPECTION - Neurological Exam Neurological Exam: Alert, Awake, Oriented x3 - Psychiatric Exam Psychiatric exam: Normal Affect, Normal Mood - Skin Skin Exam: Intact, Normal Color, Warm Assessment and Plan - Assessment and Plan (Free Text) Assessment: 58 yo F with pmhx of squamous cell carcinoma of head and neck admitted for SOB, treated for bronchitis, doing well, continue abx, decadron and neb, OOB and ambulate <Gandara,Tristan K - Last Filed: 04/21/18 10:49> Objective - Vital Signs/Intake and Output Vital Signs (last 24 hours): Temp Pulse Resp BP Pulse Ox 98.1 F 91 H 20 159/97 H 96 04/21/18 09:04 04/21/18 09:04 04/21/18 09:04 04/21/18 09:04 04/21/18 09:04 - Medications Medications: Current Medications Acetaminophen (Tylenol 325mg Tab) 650 mg PO Q6 PRN PRN Reason: Pain, Mild (1-3) Albuterol (Ventolin Hfa 90 Mcg/Actuation (8 G)) 2 puff IH Q6H PRN PRN Reason: Wheezing Albuterol/Ipratropium (Duoneb 3 Mg/0.5 Mg (3 Ml) Ud) 3 ml INH RQ6 [facility] Last Admin: 04/21/18 07:10 Dose: 3 ml Dexamethasone (Decadron Inj) 4 mg IV Q12 [facility] Last Admin: 04/21/18 09:10 Dose: 4 mg Docusate Sodium (Colace) 100 mg PO BID [facility] Last Admin: 04/21/18 09:09 Dose: 100 mg Famotidine (Pepcid) 40 mg PO HS [facility] Last Admin: 04/20/18 21:27 Dose: 40 mg Guaifenesin/Dextromethorphan (Robitussin Dm) 10 ml PO Q4 PRN PRN Reason: Cough Ibuprofen (Motrin Tab) 400 mg PO Q4 PRN PRN Reason: Pain, Mild (1-3) Last Admin: 04/20/18 11:11 Dose: 400 mg Levothyroxine Sodium (Synthroid) 25 mcg PO DAILY@0630 [facility] Last Admin: 04/21/18 06:06 Dose: 25 mcg Lorazepam (Ativan) 1 mg PO TID@0900,1500,2100 [facility] Last Admin: 04/21/18 09:09 Dose: 1 mg Ondansetron HCl (Zofran Tab) 8 mg PO Q8 PRN PRN Reason: Nausea/Vomiting Oxycodone HCl (Oxycodone Immediate Release Tab) 15 mg PO Q4 PRN PRN Reason: Pain, severe (8-10) Last Admin: 04/21/18 03:15 Dose: 15 mg - Labs Labs: 04/20/18 04:20 04/20/18 04:20 Assessment and Plan - Assessment and Plan (Free Text) Assessment: Patient was personally seen and examined by me in rounds with residents. Available labs and diagnostic data reviewed. Case, Patient's condition and management plan discussed with residents in rounds. Agree with resident's progress note. Plan: As ordered.
--- NOTE | 2018-04-20 20:33 | CP.PCM.PN ---
Subjective - Date & Time of Evaluation Date of Evaluation: 04/20/18 - Subjective Subjective: F/U Asthmatic Bronchitis. No SOB, c/o of dry cough. Objective - Vital Signs/Intake and Output Vital Signs (last 24 hours): Temp Pulse Resp BP Pulse Ox 97.9 F 76 20 147/87 93 L 04/20/18 20:28 04/20/18 20:28 04/20/18 20:28 04/20/18 20:28 04/20/18 20:28 - Medications Medications: Current Medications Acetaminophen (Tylenol 325mg Tab) 650 mg PO Q6 PRN PRN Reason: Pain, Mild (1-3) Albuterol (Ventolin Hfa 90 Mcg/Actuation (8 G)) 2 puff IH Q6H PRN PRN Reason: Wheezing Albuterol/Ipratropium (Duoneb 3 Mg/0.5 Mg (3 Ml) Ud) 3 ml INH RQ6 [facility] Last Admin: 04/20/18 19:19 Dose: Not Given Dexamethasone (Decadron Inj) 4 mg IV Q12 [facility] Docusate Sodium (Colace) 100 mg PO BID [facility] Last Admin: 04/20/18 16:32 Dose: 100 mg Famotidine (Pepcid) 40 mg PO HS [facility] Guaifenesin/Dextromethorphan (Robitussin Dm) 10 ml PO Q4 PRN PRN Reason: Cough Azithromycin 500 mg/ Sodium (Chloride) 250 mls @ 250 mls/hr IVPB DAILY [facility] PRN Reason: Protocol Stop: 04/21/18 09:59 Ibuprofen (Motrin Tab) 400 mg PO Q4 PRN PRN Reason: Pain, Mild (1-3) Last Admin: 04/20/18 11:11 Dose: 400 mg Levothyroxine Sodium (Synthroid) 25 mcg PO DAILY@0630 [facility] Last Admin: 04/20/18 05:40 Dose: 25 mcg Lorazepam (Ativan) 1 mg PO TID@0900,1500,2100 [facility] Last Admin: 04/20/18 16:32 Dose: 1 mg Ondansetron HCl (Zofran Tab) 8 mg PO Q8 PRN PRN Reason: Nausea/Vomiting Oxycodone HCl (Oxycodone Immediate Release Tab) 15 mg PO Q4 PRN PRN Reason: Pain, severe (8-10) Last Admin: 04/20/18 05:39 Dose: 15 mg - Labs Labs: 04/20/18 04:20 04/20/18 04:20 - Constitutional Appears: Chronically Ill - Head Exam Head Exam: NORMAL INSPECTION - Eye Exam Eye Exam: PERRL - ENT Exam ENT Exam: Normal Exam - Neck Exam Additional comments: Scar R neck 2nd to Hx radiation. - Respiratory Exam Respiratory Exam: Wheezes (b/l) - Cardiovascular Exam Cardiovascular Exam: REGULAR RHYTHM - GI/Abdominal Exam GI & Abdominal Exam: Soft, Normal Bowel Sounds - Extremities Exam Extremities Exam: Normal Inspection - Back Exam Back Exam: NORMAL INSPECTION - Neurological Exam Neurological Exam: Alert, Oriented x3. absent: Motor Sensory Deficit - Psychiatric Exam Psychiatric exam: Anxious - Skin Skin Exam: Warm Assessment and Plan (1) Asthmatic bronchitis Status: Acute (2) Hx of squamous cell carcinoma Status: Acute - Assessment and Plan (Free Text) Plan: Increase Decadron doses, continue rest of Tx.
[2018-04-20] MEDS ORDERED: Dexamethasone 4 MG in Sodium Chloride 0.9% 50 ML IVPB SCH (21:00)
[2018-04-21] MEDS: Albuterol-Ipratrop 3 mg / 0.5 (3 ml) UD INH SCH ×3 (01:08→13:00)
[2018-04-21] MEDS: oxyCODONE 5 mg Immediate Release Tab PO PRN (03:15)
[2018-04-21] MEDS: Levothyroxine 25 MCG TAB PO SCH (06:06)
[2018-04-21] MEDS ORDERED: Azithromycin 500 MG in Sodium Chloride 0.9% 250 ML IVPB ONE (09:00)
[2018-04-21 09:05] VITALS: O2SAT 96
[2018-04-21] MEDS: Dexamethasone 4 mg/1 ml IV SCH (09:10)
[2018-04-21 12:28] VITALS: BP 124/85; PULSE 75; RESP 18; TEMP 97.7
--- NOTE | 2018-04-21 14:38 | CP.PCM.DIS ---
Provider - Provider Date of Admission: 04/17/18 14:19 Attending physician: Tristan Gandara MD Time Spent in preparation of Discharge (in minutes): 30 Diagnosis - Discharge Diagnosis (1) Asthmatic bronchitis Status: Resolved Priority: High (2) Hx of squamous cell carcinoma Status: Chronic Priority: High Hospital Course - Lab Results Lab Results: Micro Results 04/17/18 12:50 Blood-Venous Blood Culture - Preliminary NO GROWTH AFTER 4 DAYS Most Recent Lab Values WBC 9.4 K/uL (4.8-10.8) 04/20/18 04:20 RBC 4.34 Mil/uL (3.80-5.20) 04/20/18 04:20 Hgb 13.2 g/dL (12.0-16.0) 04/20/18 04:20 Hct 39.7 % (34.0-47.0) 04/20/18 04:20 MCV 91.5 fl (81.0-99.0) 04/20/18 04:20 MCH 30.4 pg (27.0-31.0) 04/20/18 04:20 MCHC 33.2 g/dL (33.0-37.0) 04/20/18 04:20 RDW 14.2 % (11.5-14.5) 04/20/18 04:20 Plt Count 224 K/uL (130-400) 04/20/18 04:20 MPV 7.8 fl (7.2-11.7) 04/17/18 12:50 Neut % (Auto) 85.4 % (50.0-75.0) H 04/17/18 12:50 Lymph % (Auto) 9.2 % (20.0-40.0) L 04/17/18 12:50 [place] % (Auto) 3.6 % (0.0-10.0) 04/17/18 12:50 Eos % (Auto) 1.1 % (0.0-4.0) 04/17/18 12:50 Baso % (Auto) 0.7 % (0.0-2.0) 04/17/18 12:50 Neut # (Auto) 6.3 K/uL (1.8-7.0) 04/17/18 12:50 Lymph # (Auto) 0.7 K/uL (1.0-4.3) L 04/17/18 12:50 [place] # (Auto) 0.3 K/uL (0.0-0.8) 04/17/18 12:50 Eos # (Auto) 0.1 K/uL (0.0-0.7) 04/17/18 12:50 Baso # (Auto) 0.0 K/uL (0.0-0.2) 04/17/18 12:50 Neutrophils % (Manual) 81 % (42-75) H 04/17/18 12:50 Band Neutrophils % 2 % (0-2) 04/17/18 12:50 Lymphocytes % (Manual) 14 % (20-50) L 04/17/18 12:50 Monocytes % (Manual) 3 % (0-10) 04/17/18 12:50 Platelet Estimate Normal (NORMAL) 04/17/18 12:50 RBC Morphology Normal (NORMAL) 04/17/18 12:50 pCO2 41 mm/Hg (35-45) 04/18/18 15:47 pO2 55 mm/Hg (80-100) L 04/18/18 15:47 HCO3 29.1 mmol/L (21-28) H 04/18/18 15:47 ABG pH 7.47 (7.35-7.45) H 04/18/18 15:47 ABG Total CO2 31.1 mmol/L (22-28) H 04/18/18 15:47 ABG O2 Saturation 92.8 % (95-98) L 04/18/18 15:47 ABG O2 Content 16.0 ML/dL (15-23) 04/18/18 15:47 ABG Base Excess 5.6 mmol/L (-2.0-3.0) H 04/18/18 15:47 ABG Hemoglobin 12.6 g/dL (11.7-17.4) 04/18/18 15:47 ABG Carboxyhemoglobin 1.2 % (0.5-1.5) 04/18/18 15:47 POC ABG HHb (Measured) 7.0 % (0.0-5.0) H 04/18/18 15:47 ABG Methemoglobin 1.4 % (0.0-3.0) 04/18/18 15:47 ABG O2 Capacity 17.2 mL/dL (16-24) 04/18/18 15:47 Dennis Test Yes 04/18/18 15:47 ABG Potassium 3.7 mmol/L (3.6-5.2) 04/17/18 12:20 A-a O2 Difference 43.0 mm/Hg 04/18/18 15:47 Hgb O2 Saturation 90.5 % (95.0-98.0) L 04/18/18 15:47 Sodium 134.0 mmol/L (132-148) 04/17/18 12:20 Chloride 102.0 mmol/L (98-107) 04/17/18 12:20 Glucose 147 mg/dL (65-105) H 04/17/18 12:20 Lactate 0.8 mmol/L (0.7-2.1) 04/17/18 12:20 Vent Mode Room air 04/18/18 15:47 FiO2 21.0 % 04/18/18 15:47 Sodium 139 mmol/l (132-148) 04/20/18 04:20 Potassium 4.4 MMOL/L (3.6-5.0) 04/20/18 04:20 Chloride 103 mmol/L (98-107) 04/20/18 04:20 Carbon Dioxide 27 mmol/L (22-30) 04/20/18 04:20 Anion Gap 13 (10-20) 04/20/18 04:20 BUN 20 mg/dl (7-17) H 04/20/18 04:20 Creatinine 0.9 mg/dl (0.7-1.2) 04/20/18 04:20 Est GFR ( Amer) > 60 04/20/18 04:20 Est GFR (Non-Af Amer) > 60 04/20/18 04:20 Random Glucose 133 mg/dL (65-105) H 04/20/18 04:20 Calcium 9.7 mg/dL (8.4-10.2) 04/20/18 04:20 Phosphorus 3.6 mg/dl (2.5-4.5) 04/20/18 04:20 Magnesium 1.8 MG/DL (1.6-2.3) 04/20/18 04:20 Total Bilirubin 0.2 mg/dl (0.2-1.3) 04/20/18 04:20 AST 26 U/L (14-36) 04/20/18 04:20 ALT 26 U/L (9-52) 04/20/18 04:20 Alkaline Phosphatase 56 U/L (38-126) 04/20/18 04:20 Troponin I < 0.0120 ng/mL (0.00-0.120) 04/17/18 12:50 Total Protein 6.9 G/DL (6.3-8.2) 04/20/18 04:20 Albumin 4.0 g/dL (3.5-5.0) 04/20/18 04:20 Globulin 2.8 gm/dL (2.2-3.9) 04/20/18 04:20 Albumin/Globulin Ratio 1.4 (1.0-2.1) 04/20/18 04:20 Vitamin B12 505 pg/mL (239-931) 04/18/18 08:12 TSH 3rd Generation 1.43 mIU/ML (0.46-4.68) 04/18/18 08:12 Arterial Blood Potassium 3.7 mmol/L (3.6-5.2) 04/17/18 12:20 - Hospital Course Hospital Course: 58 yo F with pmhx of squamous cell carcinoma of head and neck presented to [facility] ED with SOB and productive cough and was admitted for treatment of acute bronchitis. Of note, 2 months prior pt was treated for pneumonitis at [facility] and is currently on a Decadron taper. During admission, pt was treated with duonebs, Azithromycin, and dexadron daily. Chest CT completed- no acute infiltrates. During her admission, she was evaluated by Solar Project Engineer, Dr. Escudero, who offered recommendations for her management. Her symptoms improved and she was saturation well and comfortably on room air. Pt was cleared for discharge by frit maker. Discharge Medications: -Dexamethasone 6mg PO TID -Azythromycin 500mg PO daily x 3 days -Symbicort 2puffs daily Condition upon discharge: Stable Discharge Instructions: Pt advised to f/u with Oncologist tomorrow as scheduled. Steroid tapering dose adjustments can be made by her primary care team. Discussed case with Dr. Gandara. Filipe Lee, PGY2 Discharge Exam - Head Exam Head Exam: NORMAL INSPECTION - Eye Exam Eye Exam: Normal appearance - ENT Exam ENT Exam: Mucous Membranes Moist - Respiratory Exam Respiratory Exam: Decreased Breath Sounds. absent: Rales, Wheezes, Respiratory Distress - Cardiovascular Exam Cardiovascular Exam: REGULAR RHYTHM, +S1, +S2. absent: Systolic Murmur - GI/Abdominal Exam GI & Abdominal Exam: Normal Bowel Sounds, Soft - Extremities Exam Extremities exam: normal inspection - Neurological Exam Neurological exam: Alert, Oriented x3 - Psychiatric Exam Psychiatric exam: Normal Affect - Skin Skin Exam: Dry Discharge Plan - Discharge Medications Prescriptions: Azithromycin [Zithromax] 500 mg PO DAILY #3 tablet Budesonide/Formoterol Fumarate [Symbicort] 2 aer IH DAILY #1 aer Dexamethasone [Decadron] 6 mg PO TID #6 tablet - Follow Up Plan Condition: FAIR Disposition: HOME/ ROUTINE Instructions: Lung Cancer, Exacerbation of COPD (DC)
--- NOTE | 2018-04-21 18:38 | CP.PCM.PN ---
Subjective - Date & Time of Evaluation Date of Evaluation: 04/21/18 - Subjective Subjective: F/U Asthmatic Bronchitis. Pt breathing well, no cough, no SOB, chest congestion. Objective - Vital Signs/Intake and Output Vital Signs (last 24 hours): Temp Pulse Resp BP Pulse Ox 97.7 F 75 18 124/85 96 04/21/18 12:27 04/21/18 12:27 04/21/18 12:27 04/21/18 12:27 04/21/18 12:27 - Labs Labs: 04/20/18 04:20 04/20/18 04:20 - Constitutional Appears: Chronically Ill - Head Exam Head Exam: NORMAL INSPECTION - Eye Exam Eye Exam: PERRL - ENT Exam ENT Exam: Normal Exam - Neck Exam Additional comments: Scar R neck 2nd to Hx Radiation. - Respiratory Exam Respiratory Exam: Decreased Breath Sounds Additional comments: No bronchospasm - Cardiovascular Exam Cardiovascular Exam: REGULAR RHYTHM - GI/Abdominal Exam GI & Abdominal Exam: Soft, Normal Bowel Sounds - Extremities Exam Extremities Exam: Normal Inspection - Back Exam Back Exam: NORMAL INSPECTION - Neurological Exam Neurological Exam: Alert, Oriented x3. absent: Motor Sensory Deficit - Psychiatric Exam Psychiatric exam: Anxious - Skin Skin Exam: Warm Assessment and Plan (1) Asthmatic bronchitis Assessment & Plan: Improved. Status: Resolved (2) Hx of squamous cell carcinoma Status: Chronic - Assessment and Plan (Free Text) Plan: Pulmonary stable to be discharged, continue abx course, Decadron, symbicort, Ventolin, f/u with instruction MAR, f/u with PMD tomorrow.
== END 2018-04-21 18:29 | disposition home or self-care (01) | DRG 88 ==
LOC: H.ER 11:39 → H.ERHOLD 14:19 → H.TEL 16:25
PROVIDERS: ADMIT Internal Medicine; ATTEND Internal Medicine
DX: J44.1 Chronic obstructive pulmonary disease with (acute) exacerbation (principal); C34.90 Malignant neoplasm of unspecified part of unspecified bronchus or lung; J44.0 Chronic obstructive pulmonary disease with (acute) lower respiratory infection; J20.9 Acute bronchitis, unspecified; I10 Essential (primary) hypertension; Z99.81 Dependence on supplemental oxygen; Z85.89 Personal history of malignant neoplasm of other organs and systems; Z92.21 Personal history of antineoplastic chemotherapy; Z87.01 Personal history of pneumonia (recurrent)

== ENCOUNTER 2018-06-25 19:36 | Inpatient (IN) | payer MEDICAID ==
[2018-06-25 19:36] VITALS: BMI 23.9
[2018-06-25] MEDS ORDERED: Albuterol-Ipratrop 3 mg / 0.5 (3 ml) UD INH STA ×2 (20:05→21:46)
--- NOTE | 2018-06-25 20:23 | ED PDOC ---
HPI: SOB/CHF/COPD Time Seen by Provider: 06/25/18 19:52 Chief Complaint (Nursing): Shortness Of Breath Chief Complaint (Provider): Shortness of breath History Per: Patient History/Exam Limitations: no limitations Onset/Duration Of Symptoms: Days (last few days ) Current Symptoms Are (Timing): Still Present Associated Symptoms: denies: Fever Additional Complaint(s): Melodie Sotomayor is a 58 year old female, with a past medical history of head and neck cancer which is currently being treated with Keytruda at [facility] and is here visiting her family, who presents to the emergency department for evaluation of a worsening dyspnea over the last several days with productive cough and increasing oxygen requirements. She uses a Ventolin inhaler intermittently and wants to avoid using corticosteroids because she states they will reduce the effectiveness of Keytruda. She was on Dexamethasone prior to last Keytruda infusion which was one week ago. She denies any fever, syncope, hemoptysis, leg pain or swelling. No further medical complaints. PMD: No [facility] Provider. Past Medical History Reviewed: Historical Data, Nursing Documentation, Vital Signs Vital Signs: Last Vital Signs Temp 98.4 F 06/25/18 19:50 Pulse 110 H 06/25/18 19:50 Resp 28 H 06/25/18 19:50 BP 160/109 H 06/25/18 20:01 Pulse Ox 94 L 06/25/18 19:50 - Medical History PMH: Asthma, Bronchitis, COPD, HTN, Malignancy (internal Stage 4 Squamous Cell Carcinoma of the head/neck), Pneumonia Denies: HIV, Chronic Kidney Disease - Surgical History Other surgeries: x2 ports placed & removed. Feeding tube placed & removed - Family History Family History: States: Unknown Family Hx - Immunization History Hx Tetanus Toxoid Vaccination: Yes - Home Medications Home Medications: Ambulatory Orders Medication Instructions Recorded LORazepam [Ativan] 1 mg PO TID PRN #15 tab 10/19/17 Docusate Sodium [Lucas' 1 cap PO BID 04/17/18 Laxative] Levothyroxine [Synthroid] 1 tab PO DAILY 04/17/18 Ondansetron HCl [Zofran] 1 tab PO Q8 PRN 04/17/18 Ranitidine HCl [Acid Ragman] 1 tab PO BID 04/17/18 Levothyroxine [Synthroid] 0.5 tab PO QAM 06/25/18 oxyCODONE [oxyCODONE Immediate 30 mg PO Q4 PRN 06/25/18 Release Tab] - Allergies Allergies/Adverse Reactions: Allergies Allergy/AdvReac Type Severity Reaction Status Date / Time cefepime Allergy RASH Verified 06/25/18 22:07 naproxen [From Naprosyn] Allergy RASH Verified 06/25/18 19:44 prednisone Allergy RASH Verified 06/25/18 19:44 budesonide [From Pulmicort] AdvReac SHORTNESS Verified 06/25/18 19:44 OF BREATH Review of Systems ROS Statement: Except As Marked, All Systems Reviewed And Found Negative Constitutional: Positive for: Weakness (generalized) ENT: Negative for: Throat Pain Cardiovascular: Negative for: Edema Respiratory: Positive for: Cough, Shortness of Breath. Negative for: Hemoptysis Neurological: Negative for: Headache Physical Exam - Reviewed Nursing Documentation Reviewed: Yes Vital Signs Reviewed: Yes - Physical Exam Appears: Positive for: No Acute Distress Head Exam: Positive for: ATRAUMATIC, NORMAL INSPECTION, NORMOCEPHALIC Skin: Positive for: Normal Color, Warm, Dry Eye Exam: Positive for: Normal appearance, EOMI, PERRL ENT: Positive for: Normal ENT Inspection Neck: Positive for: Normal, Painless ROM Cardiovascular/Chest: Positive for: Tachycardia (regular rhythm). Negative for: Edema (distal), Murmur Respiratory: Positive for: Wheezing (bilaterally with diminished breath sounds), Respiratory Distress (mild.), Other (Speaking partial sentences) Pulses-Radial (L): 2+ Pulses-Radial (R): 2+ Gastrointestinal/Abdominal: Positive for: Normal Exam, Soft. Negative for: Tenderness, Guarding, Rebound Back: Positive for: Normal Inspection. Negative for: L CVA Tenderness, R CVA Tenderness, Vertebral Tenderness Extremity: Positive for: Normal ROM (upper and lower extremities). Negative for: Tenderness, Deformity, Swelling Neurologic/Psych: Positive for: Alert, Oriented, Other (neurologically intact). Negative for: Motor/Sensory Deficits - Laboratory Results Result Diagrams: 06/25/18 20:30 06/25/18 20:30 - ECG ECG: Positive for: Interpreted By Me ECG Rhythm: Positive for: Sinus Tachycardia, Nonspecific Changes Rate: 107 O2 Sat by Pulse Oximetry: 94 (RA) Pulse Ox Interpretation: Abnormal - Radiology X-Ray: Interpreted by Me X-Ray Interpretation: Infiltrates (? L base slight opacity compared to 04/17/18) Medical Decision Making Medical Decision Making: Time: 19:52 Initial Impression: Work up for respiratory distress and active CA. Patient with known asthmatic history. Initiate vapotherm. R/O PNA, Patient hesitant to take any steroids due to interaction with cancer therapy, will try Duoneb first. Initial Plan: --EKG --B-Type Natriuretic Peptide --CMP --Troponin I --CBC w/ differential --PTT --PT --Chest two views (PA/LAT) [RAD] --Duoneb 3 ml INH --Vapotherm --Urinalysis --Reevaluation EKG: Sinus tach @ 107bpm with no other acute changes. CT chest performed apr 2018, report reviewed. Pulmonary consult reviewed apr 2018. ------ labs reviewed, mild increase in Formula Mixer compared to prior otherwise WBC, Hgb normal. Initiate Levaquin for clinical Pneumonia given immunocompromised, clinical presentation, resp failure. Continue vapotherm, pt more comfortable on high flow humidified O2. Admit Dr Davis refrigeration service technician medicine Scribe Attestation: Documented by Martin Hudson, acting as a scribe for Crow Torres MD. Provider Scribe Attestation: All medical record entries made by the Scribe were at my direction and personally dictated by me. I have reviewed the chart and agree that the record accurately reflects my personal performance of the history, physical exam, medical decision making, and the department course for this patient. I have also personally directed, reviewed, and agree with the discharge instructions and d isposition. Disposition - Disposition
[2018-06-25 20:42] LABS: BASO # 0.1 K/uL (0.0-0.2); BASO % 0.8 % (0.0-2.0); EOS # 0.1 K/uL (0.0-0.7); EOS % 1.4 % (0.0-4.0); HEMOGLOBIN 13.4 g/dL (12.0-16.0); LYMPH # 1.7 K/uL (1.0-4.3); LYMPH % 23.1 % (20.0-40.0); MEAN CELL VOLUME 92.3 fl (81.0-99.0); MEAN CORPUSCULAR HGB CONC 33.6 g/dL (33.0-37.0); MEAN PLATELET VOLUME 7.5 fl (7.2-11.7); MONO # 0.9 K/uL (0.0-0.8); NEUT # 4.5 K/uL (1.8-7.0); NEUT % 61.7 % (50.0-75.0); NRBC % 0.1 % (0.0-0.0); RBC 4.32 Mil/uL (3.80-5.20); RED CELL DISTRIBUTION WIDTH 14.7 % (11.5-14.5); WHITE BLOOD COUNT 7.2 K/uL (4.8-10.8)
[2018-06-25 20:48] LABS: INR 0.9; PROTHROMBIN TIME 10.7 Seconds (9.8-13.1)
[2018-06-25 20:51] LABS: ALB/GLOB RATIO 1.5 (1.0-2.1); ALBUMIN 4.4 g/dL (3.5-5.0); ALT/SGPT 34 U/L (9-52); AST/SGOT 28 U/L (14-36); BLOOD UREA NITROGEN 13 mg/dl (7-17); CALCIUM 9.5 mg/dL (8.4-10.2); GFR NON-AFRICAN AMERICAN 42; PARTIAL THROMBOPLASTIN TIME 34.4 Seconds (25.6-37.1)
[2018-06-25 20:59] LABS: URINE BILIRUBIN NEGATIVE (NEGATIVE); URINE BLOOD NEGATIVE (NEGATIVE); URINE CLARITY CLEAR (Clear); URINE COLOR STRAW (YELLOW); URINE GLUCOSE (UA) NEG (Normal); URINE LEUKOCYTE ESTERASE SMALL Leu/uL (Negative); URINE PROTEIN NEGATIVE (NEGATIVE); URINE UROBILINOGEN 0.2-1.0 mg/dL (0.2-1.0)
[2018-06-25 21:02] LABS: B-TYPE NATRIURETIC PEPTIDE 41.1 pg/ml (0-900)
[2018-06-25] MEDS ORDERED: Sodium Chloride 0.9% 1,000 ML IV STA (21:56)
[2018-06-25] MEDS ORDERED: cefTRIAXone (Rocephin) 1 gm Inj ONE (21:59)
[2018-06-25] MEDS ORDERED: levoFLOXacin 750 mg in D5W 750 MG/150 ML BAG IVPB ONE (22:32)
[2018-06-25] MEDS ORDERED: levoFLOXacin 750 mg in D5W 750 MG/150 ML BAG IVPB STA (22:35)
[2018-06-26] MEDS ORDERED: oxyCODONE 10 mg Immediate Release Tab PO PRN (01:04)
[2018-06-26] MEDS: Albuterol-Ipratrop 3 mg / 0.5 (3 ml) UD INH SCH ×6 (03:51→23:31)
[2018-06-26] MEDS ORDERED: cefTRIAXone (Rocephin) 2 gm Inj IVPB SCH (09:00)
[2018-06-26] MEDS ORDERED: Azithromycin 500 MG in Sodium Chloride 0.9% 250 ML IVPB SCH ×2 (09:00)
[2018-06-26] MEDS ORDERED: levoFLOXacin 750 mg in D5W 750 MG/150 ML BAG IVPB SCH (09:00)
[2018-06-26] MEDS ORDERED: Dexamethasone 4 MG in Sodium Chloride 0.9% 50 ML IVPB SCH (09:15)
[2018-06-26] MEDS ORDERED: Dexamethasone 4 mg/1 ml IV SCH ×2 (09:15→17:00)
[2018-06-26] MEDS: Levothyroxine 75 MCG TAB PO SCH (09:31)
[2018-06-26] MEDS: levoFLOXacin 500 mg in D5W 500 MG/100 ML BAG IVPB SCH (09:31)
--- NOTE | 2018-06-26 09:41 | CARD ---
APPROVED REPORT Date of service: 06/25/2018 EKG Measurement Heart [id number] <Conclusion> Sinus tachycardia Otherwise normal ECG
[2018-06-26 10:56] LABS: ABG ALLEN TEST YES; ARTERIAL BLOOD GAS HCO3 26.2 mmol/L (21-28); ARTERIAL BLOOD GAS O2 CAPACITY 17.9 mL/dL (16-24); ARTERIAL BLOOD GAS O2 CONTENT 17.7 ML/dL (15-23); ARTERIAL BLOOD GAS O2 SAT 98.9 % (95-98); ARTERIAL BLOOD GAS PCO2 48 mm/Hg (35-45); ARTERIAL BLOOD GAS PH 7.37 (7.35-7.45); ARTERIAL BLOOD GAS PO2 90 mm/Hg (80-100); ARTERIAL BLOOD GAS TCO2 29.2 mmol/L (22-28)
[2018-06-26] MEDS ORDERED: Albuterol-Ipratrop 3 mg / 0.5 (3 ml) UD INH STA ×2 (10:57→11:11)
--- NOTE | 2018-06-26 11:40 | RAD ---
Date of service: 06/25/2018 HISTORY: cough COMPARISON: Chest radiographs 04/17/2018. FINDINGS: LUNGS: No active pulmonary disease. PLEURA: No significant pleural effusion identified, no pneumothorax apparent. CARDIOVASCULAR: No aortic atherosclerotic calcification present. Normal cardiac size. No pulmonary vascular congestion. OSSEOUS STRUCTURES: No significant abnormalities. VISUALIZED UPPER ABDOMEN: Normal. OTHER FINDINGS: None. IMPRESSION: No interval acute cardiopulmonary disease appreciated.
--- NOTE | 2018-06-26 11:55 | CP.PCM.HP ---
History of Present Illness - History of Present Illness History of Present Illness: CC: Worsening SOB History of Present Illness: A 58 year old female, with a past medical history of head and neck cancer and Asthma which is currently being treated with Keytruda at [facility] and is here visiting her family, who presents to the emergency department for evaluation of a worsening dyspnea over the last several days with productive cough and increasing oxygen requirements. She uses a Ventolin inhaler intermittently and wants to avoid using corticosteroids because she states they will reduce the effectiveness of Keytruda. She has been on Dexamethasone prior to last Keytruda infusion which was one week ago. She denies any fever, syncope, hemoptysis, leg pain or swelling. No further medical complaints. Present on Admission - Present on Admission Any Indicators Present on Admission: No Review of Systems - Review of Systems All systems: reviewed and no additional remarkable complaints except Review of Systems: as per HPI Past Patient History - Infectious Disease Hx of Infectious Diseases: None - Past Medical History & Family History Past Medical History?: Yes Past Family History: Reviewed and not pertinent - Past Social History Smoking Status: Former Smoker Alcohol: Social Drugs: Denies - CARDIAC Hx Cardiac Disorders: Yes Hx Hypertension: Yes - PULMONARY Hx Respiratory Disorders: Yes Hx Asthma: Yes Hx Chronic Obstructive Pulmonary Disease (COPD): Yes Hx Pneumonia: Yes - NEUROLOGICAL Hx Neurological Disorder: No - HEENT Hx HEENT Problems: No - RENAL Hx Chronic Kidney Disease: No - ENDOCRINE/METABOLIC Hx Endocrine Disorders: No - HEMATOLOGICAL/ONCOLOGICAL Hx Blood Disorders: No Hx AIDS: No Hx Human Immunodeficiency Virus (HIV): No - INTEGUMENTARY Hx Dermatological Problems: Yes Hx Squamous Cell: Yes Other/Comment: 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 - MUSCULOSKELETAL/RHEUMATOLOGICAL Hx Musculoskeletal Disorders: No Hx Falls: No - GASTROINTESTINAL Hx Gastrointestinal Disorders: No Other/Comment: s/p peg removal - GENITOURINARY/GYNECOLOGICAL Hx Genitourinary Disorders: No - PSYCHIATRIC Hx Psychophysiologic Disorder: No Hx Substance Use: No - SURGICAL HISTORY Hx Surgeries: Yes Other/Comment: biopsy neck - ANESTHESIA Hx Anesthesia: Yes Hx Anesthesia Reactions: No Hx Malignant Hyperthermia: No Meds Home Medications: Home Medication List Medication Instructions Recorded Confirmed Type Levothyroxine [Synthroid] 37.5 mcg PO DAILY@0630 tab 06/28/18 Rx Allergies/Adverse Reactions: Allergies Allergy/AdvReac Type Severity Reaction Status Date / Time cefepime Allergy RASH Verified 06/25/18 22:07 naproxen [From Naprosyn] Allergy RASH Verified 06/25/18 19:44 prednisone Allergy RASH Verified 06/25/18 19:44 budesonide [From Pulmicort] AdvReac SHORTNESS Verified 06/25/18 19:44 OF BREATH Physical Exam - Constitutional Appears: In Acute Distress, Chronically Ill - Head Exam Head Exam: ATRAUMATIC, NORMAL INSPECTION, NORMOCEPHALIC - Eye Exam Eye Exam: EOMI, Normal appearance, PERRL Pupil Exam: NORMAL ACCOMODATION, PERRL - ENT Exam ENT Exam: Mucous Membranes Moist, Normal Exam - Neck Exam Neck exam: Positive for: Lymphadenopathy, Tenderness Additional comments: Neck Scar - Respiratory Exam Respiratory Exam: Accessory Muscle Use, Decreased Breath Sounds, Prolonged Expiratory Phase, Wheezes - Cardiovascular Exam Cardiovascular Exam: REGULAR RHYTHM, +S1, +S2 - GI/Abdominal Exam GI & Abdominal Exam: Normal Bowel Sounds, Soft. absent: Tenderness - Extremities Exam Extremities exam: Positive for: normal capillary refill, normal inspection - Back Exam Back exam: NORMAL INSPECTION - Neurological Exam Neurological exam: Alert, CN II-XII Intact, Normal Gait, Oriented x3, Reflexes Normal - Psychiatric Exam Psychiatric exam: Normal Affect, Normal Mood - Skin Skin Exam: Dry, Intact, Normal Color, Warm Results - Vital Signs Recent Vital Signs: Last Vital Signs Temp 97.4 F L 06/26/18 08:20 Pulse 96 H 06/26/18 08:20 Resp 20 06/26/18 08:20 BP 115/76 06/26/18 08:20 Pulse Ox 97 06/26/18 08:20 - Labs Result Diagrams: 06/25/18 20:30 06/25/18 20:30 Labs: Laboratory Results - last 24 hr 06/25/18 06/25/18 06/25/18 20:18 20:30 20:30 WBC 7.2 RBC 4.32 Hgb 13.4 Hct 39.9 MCV 92.3 MCH 31.0 MCHC 33.6 RDW 14.7 H Plt Count 224 MPV 7.5 Neut % (Auto) 61.7 Lymph % (Auto) 23.1 Person % (Auto) 13.0 H Eos % (Auto) 1.4 Baso % (Auto) 0.8 Neut # (Auto) 4.5 Lymph # (Auto) 1.7 Person # (Auto) 0.9 H Eos # (Auto) 0.1 Baso # (Auto) 0.1 PT INR APTT pCO2 pO2 HCO3 ABG pH ABG Total CO2 ABG O2 Saturation ABG O2 Content ABG Base Excess ABG Hemoglobin ABG Carboxyhemoglobin POC ABG HHb (Measured) ABG Methemoglobin ABG O2 Capacity Dennis Test A-a O2 Difference Hgb O2 Saturation FiO2 Blood Gas Comments Sodium 138 Potassium 4.2 Chloride 98 Carbon Dioxide 29 Anion Gap 15 BUN 13 Creatinine 1.3 H Est GFR ( Amer) 51 Est GFR (Non-Af Amer) 42 Random Glucose 131 H Calcium 9.5 Total Bilirubin 0.6 AST 28 ALT 34 Alkaline Phosphatase 52 Troponin I < 0.0120 NT-Pro-B Natriuret Pep 41.1 Total Protein 7.3 Albumin 4.4 Globulin 2.9 Albumin/Globulin Ratio 1.5 Urine Color Straw Urine Clarity Clear Urine pH 6.0 Ur Specific Woodson < 1.005 Urine Protein Negative Urine Glucose (UA) Neg Urine Ketones Negative Urine Blood Negative Urine Nitrate Negative Urine Bilirubin Negative Urine Urobilinogen 0.2-1.0 Ur Leukocyte Esterase Small Urine RBC (Auto) < 1 Urine Microscopic WBC < 1 Influenza Typ A,B (EIA) 06/25/18 06/25/18 06/26/18 20:30 22:40 09:06 WBC RBC Hgb Hct MCV MCH MCHC RDW Plt Count MPV Neut % (Auto) Lymph % (Auto) Person % (Auto) Eos % (Auto) Baso % (Auto) Neut # (Auto) Lymph # (Auto) Person # (Auto) Eos # (Auto) Baso # (Auto) PT 10.7 INR 0.9 APTT 34.4 pCO2 48 H pO2 90 HCO3 26.2 ABG pH 7.37 ABG Total CO2 29.2 H ABG O2 Saturation 98.9 H ABG O2 Content 17.7 ABG Base Excess 1.7 ABG Hemoglobin 13.0 ABG Carboxyhemoglobin 1.7 H POC ABG HHb (Measured) 1.1 ABG Methemoglobin 0.9 ABG O2 Capacity 17.9 Dennis Test Yes A-a O2 Difference 207.0 Hgb O2 Saturation 96.4 FiO2 50.0 Blood Gas Comments 20l/m 50% hiflow Sodium Potassium Chloride Carbon Dioxide Anion Gap BUN Creatinine Est GFR ( Amer) Est GFR (Non-Af Amer) Random Glucose Calcium Total Bilirubin AST ALT Alkaline Phosphatase Troponin I NT-Pro-B Natriuret Pep Total Protein Albumin Globulin Albumin/Globulin Ratio Urine Color Urine Clarity Urine pH Ur Specific Woodson Urine Protein Urine Glucose (UA) Urine Ketones Urine Blood Urine Nitrate Urine Bilirubin Urine Urobilinogen Ur Leukocyte Esterase Urine RBC (Auto) Urine Microscopic WBC Influenza Typ A,B (EIA) Negative for flu a/b - Imaging and Cardiology Chest x-ray Status: Report reviewed by me Additional comment: Date of service: 06/25/2018 HISTORY: cough COMPARISON: Chest radiographs 04/17/2018. FINDINGS: LUNGS: No active pulmonary disease. PLEURA: No significant pleural effusion identified, no pneumothorax apparent. CARDIOVASCULAR: No aortic atherosclerotic calcification present. Normal cardiac size. No pulmonary vascular congestion. OSSEOUS STRUCTURES: No significant abnormalities. VISUALIZED UPPER ABDOMEN: Normal. OTHER FINDINGS: None. IMPRESSION: No interval acute cardiopulmonary disease appreciated. Assessment & Plan (1) Asthma exacerbation Assessment and Plan: with Possible Pneumonitis due to KeytrudaUse Status: Acute Priority: High (2) Hx of squamous cell carcinoma Status: Chronic Priority: High (3) Pneumonitis Status: Acute Priority: High - Assessment and Plan (Free Text) Plan: Continue Duo-neb Q4hrs RTC O2 Via NC Patient Refusing IV Steroid or Steroid Neb IV Levaquin Pulmonary and Oncologist Consult
[2018-06-26] MEDS ORDERED: Dexamethasone 4 MG in Sodium Chloride 0.9% 50 ML IV STA (13:23)
[2018-06-26] MEDS ORDERED: Dexamethasone 4 mg/1 ml IV STA (13:38)
--- NOTE | 2018-06-26 15:00 | PCM.RRT ---
CHEMICAL INSPECTOR Nurse Assessment - Situation CHEMICAL INSPECTOR Responder Arrival Time: 11:18 CHEMICAL INSPECTOR Reason for Call: Respiratory Distress, O2 Saturation below 90% CHEMICAL INSPECTOR Called By: RN - Ventilator Settings FIO2 (% Oxygen): 50 I.Reason for CHEMICAL INSPECTOR - A) Acute Change in Patient: Subjective: This is a 58 yo female with pmh of asthma, COPD, head and neck cancer currently is in treatment with keytruda at [facility]. Admitted for Asthma exacerbation. At 11:18 CHEMICAL INSPECTOR was called due patient complain of ``I cant breath`` and her oxygen saturation dropped <90%. Medical team arrived her vital were 115 hr, blood pressure 156/81 ox 80%, Patient was using her extra respiratory muscle to breath, and had wheezing upon auscultation. Duoneb with high flow oxygen ordered and given, patient felt bet, her labored breathing improved, and oxygen saturation was 95%. Pt also was having nausea, and zofran was given to relieve symptoms. EKG was ordered, and no acute changes noted. Patient status improved. Vitals normalized, CHEMICAL INSPECTOR was done. Dr. Read was notified. Increase Dexamethasone dose is recommended. Plan - Assessment of Findings&Treatment Plan This is a 58 yo female with pmh of asthma, COPD, head and neck cancer currently is in treatment with keytruda at [facility]. Admitted for Asthma exacerbation. CHEMICAL INSPECTOR was called due to SOB and oxygen desaturation Plan Monitor patient oxygen Continue Duoneb RQ4 Recommend to Increase dexa dose.
[2018-06-26] MEDS: Dexamethasone 4 mg/1 ml IV SCH (17:14)
[2018-06-26] MEDS: Bacitracin 500 Units/gm Oint Foilpak UD TOP SCH (17:16)
[2018-06-27] MEDS: Dexamethasone 4 mg/1 ml IV SCH ×3 (00:36→17:32)
[2018-06-27] MEDS: Albuterol-Ipratrop 3 mg / 0.5 (3 ml) UD INH SCH ×6 (03:57→23:42)
[2018-06-27] MEDS: Levothyroxine 75 MCG TAB PO SCH (06:45)
[2018-06-27] MEDS ORDERED: Benzocaine/Menthol (Cepacol) Lozenge PO SCH (09:00)
[2018-06-27] MEDS: Bacitracin 500 Units/gm Oint Foilpak UD TOP SCH ×3 (10:11→17:33)
[2018-06-27] MEDS: levoFLOXacin 500 mg in D5W 500 MG/100 ML BAG IVPB SCH (10:13)
[2018-06-27] MEDS: Benzocaine/Menthol (Cepacol) Lozenge PO PRN (17:36)
[2018-06-28] MEDS: Dexamethasone 4 mg/1 ml IV SCH ×2 (01:37→09:19)
[2018-06-28] MEDS: Albuterol-Ipratrop 3 mg / 0.5 (3 ml) UD INH SCH ×3 (03:53→11:30)
[2018-06-28] MEDS: Benzocaine/Menthol (Cepacol) Lozenge PO PRN (03:57)
[2018-06-28 05:49] VITALS: RESP 18
[2018-06-28] MEDS: Levothyroxine 75 MCG TAB PO SCH (06:20)
[2018-06-28] MEDS ORDERED: levoFLOXacin 250 mg in D5W 250 MG/50 ML BAG IVPB SCH (09:00)
[2018-06-28 09:02] VITALS: BP 127/89; TEMP 97.2; O2SAT 95
[2018-06-28] MEDS: Bacitracin 500 Units/gm Oint Foilpak UD TOP SCH (09:19)
[2018-06-28 11:10] VITALS: PULSE 77
--- NOTE | 2018-06-28 23:51 | CP.PCM.CON ---
History of Present Illness - History of Present Illness History of Present Illness: 58 year old female with a history of former tobacco abuse, asthma/COPD, stage IV squamous cell carcinoma of unknown primary on Keytruda, admitted with shortness of breath. The patient has been receiving check point inhibitor therapy at [facility], last given about 1 week ago. She notes to having similar episodes while on Keytruda which has required steroid therapy. She is currently on dexamethasone. Past medical history: asthma/COPD, stage IV squamous cell carcinoma Past surgical history: Neck surgery Family history: Denies hematologic and oncologic problems Social history: Former 2ppd, denies alcohol and illicit drug use Allergies: Several, see list Review of systems: All remaining review of systems including HEENT, cardiovascular, respiratory, gastrointestinal, genitourinary, musculoskeletal, dermatologic, psychiatric, neurologic are negative unless mentioned in the history of present illness. Past Patient History - Infectious Disease Hx of Infectious Diseases: None - Past Medical History & Family History Past Medical History?: Yes - Past Social History Smoking Status: Former Smoker - CARDIAC Hx Cardiac Disorders: Yes Hx Hypertension: Yes - PULMONARY Hx Respiratory Disorders: Yes Hx Asthma: Yes Hx Chronic Obstructive Pulmonary Disease (COPD): Yes Hx Pneumonia: Yes - NEUROLOGICAL Hx Neurological Disorder: No - HEENT Hx HEENT Problems: No - RENAL Hx Chronic Kidney Disease: No - ENDOCRINE/METABOLIC Hx Endocrine Disorders: No - HEMATOLOGICAL/ONCOLOGICAL Hx Blood Disorders: No Hx AIDS: No Hx Human Immunodeficiency Virus (HIV): No - INTEGUMENTARY Hx Dermatological Problems: Yes Hx Squamous Cell: Yes Other/Comment: 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 - MUSCULOSKELETAL/RHEUMATOLOGICAL Hx Musculoskeletal Disorders: No Hx Falls: No - GASTROINTESTINAL Hx Gastrointestinal Disorders: No Other/Comment: s/p peg removal - GENITOURINARY/GYNECOLOGICAL Hx Genitourinary Disorders: No - PSYCHIATRIC Hx Psychophysiologic Disorder: No Hx Substance Use: No - SURGICAL HISTORY Hx Surgeries: Yes Other/Comment: biopsy neck - ANESTHESIA Hx Anesthesia: Yes Hx Anesthesia Reactions: No Hx Malignant Hyperthermia: No Meds Home Medications: Home Medication List Medication Instructions Recorded Confirmed Type Levothyroxine [Synthroid] 37.5 mcg PO DAILY@0630 tab 06/28/18 Rx Allergies/Adverse Reactions: Allergies Allergy/AdvReac Type Severity Reaction Status Date / Time cefepime Allergy RASH Verified 06/25/18 22:07 naproxen [From Naprosyn] Allergy RASH Verified 06/25/18 19:44 prednisone Allergy RASH Verified 06/25/18 19:44 budesonide [From Pulmicort] AdvReac SHORTNESS Verified 06/25/18 19:44 OF BREATH Physical Exam - Head Exam Head Exam: ATRAUMATIC - Eye Exam Eye Exam: Normal appearance - ENT Exam ENT Exam: Mucous Membranes Dry - Respiratory Exam Respiratory Exam: Prolonged Expiratory Phase - Cardiovascular Exam Cardiovascular Exam: +S1, +S2 - GI/Abdominal Exam GI & Abdominal Exam: Normal Bowel Sounds - Extremities Exam Extremities exam: Positive for: normal inspection - Neurological Exam Neurological exam: Oriented x3 - Psychiatric Exam Psychiatric exam: Normal Affect, Normal Mood - Skin Skin Exam: Warm Results - Vital Signs Recent Vital Signs: Last Vital Signs Temp 97.2 F L 06/28/18 08:00 Pulse 77 06/28/18 09:00 Resp 18 06/28/18 08:00 BP 127/89 06/28/18 08:00 Pulse Ox 95 06/28/18 08:00 - Labs Result Diagrams: 06/25/18 20:30 06/25/18 20:30 Assessment & Plan (1) Squamous cell carcinoma Assessment and Plan: unknown primary on Keytruda may have pneumonitis from Keytruda as well as asthma/COPD exacerbation agree with steroids outpatient f/u with primary oncologist Thank you for this interesting consult. Status: Acute
--- NOTE | 2018-06-28 23:54 | CP.PCM.PN ---
Subjective - Date & Time of Evaluation Date of Evaluation: 06/27/18 Time of Evaluation: 18:00 - Subjective Subjective: Still short of breath but improved. Objective - Vital Signs/Intake and Output Vital Signs (last 24 hours): Temp Pulse Resp BP Pulse Ox 97.2 F L 77 18 127/89 95 06/28/18 08:00 06/28/18 09:00 06/28/18 08:00 06/28/18 08:00 06/28/18 08:00 - Labs Labs: 06/25/18 20:30 06/25/18 20:30 PT 10.7 Seconds (9.8-13.1) 06/25/18 20:30 INR 0.9 06/25/18 20:30 APTT 34.4 Seconds (25.6-37.1) 06/25/18 20:30 - Head Exam Head Exam: ATRAUMATIC - Eye Exam Eye Exam: Normal appearance - ENT Exam ENT Exam: Mucous Membranes Dry - Respiratory Exam Respiratory Exam: Prolonged Expiratory Phase - Cardiovascular Exam Cardiovascular Exam: +S1, +S2 - GI/Abdominal Exam GI & Abdominal Exam: Normal Bowel Sounds Assessment and Plan (1) Squamous cell carcinoma Assessment & Plan: on Keytruda ? pneumonitis with COPD exacerbation agree with steroids. outpatient f/u with primary oncologist. Status: Acute
--- NOTE | 2018-06-29 00:19 | CP.PCM.PN ---
Subjective - Date & Time of Evaluation Date of Evaluation: 06/27/18 Time of Evaluation: 12:05 - Subjective Subjective: Seen and examined at the bed side. RR called for acute respiratory distress yesterday PM, and patient agreed IV Decadron. Oncologist Input appreciated. Denies fever or chills. Objective - Vital Signs/Intake and Output Vital Signs (last 24 hours): Temp Pulse Resp BP Pulse Ox 97.2 F L 77 18 127/89 95 06/28/18 08:00 06/28/18 09:00 06/28/18 08:00 06/28/18 08:00 06/28/18 08:00 - Labs Labs: 06/25/18 20:30 06/25/18 20:30 PT 10.7 Seconds (9.8-13.1) 06/25/18 20:30 INR 0.9 06/25/18 20:30 APTT 34.4 Seconds (25.6-37.1) 06/25/18 20:30 - Constitutional Appears: No Acute Distress - Neck Exam Additional comments: Scars and Lap with right sided Hard mass. - Respiratory Exam Respiratory Exam: Accessory Muscle Use, Decreased Breath Sounds, Prolonged Expiratory Phase, Wheezes - Cardiovascular Exam Cardiovascular Exam: REGULAR RHYTHM, +S1, +S2 - GI/Abdominal Exam GI & Abdominal Exam: Soft. absent: Tenderness Additional comments: +G tube removal site Open and draining non-foul smelling discharge. - Extremities Exam Extremities Exam: Full ROM, Normal Capillary Refill, Normal Inspection - Back Exam Back Exam: Full ROM - Neurological Exam Neurological Exam: Alert, Awake, CN II-XII Intact, Oriented x3 Assessment and Plan (1) Asthma exacerbation Status: Acute (2) Hx of squamous cell carcinoma Status: Chronic (3) Pneumonitis Status: Acute - Assessment and Plan (Free Text) Assessment: Continue Duo-neb Q4hrs RTC O2 Via NC Patient Refusing IV Steroid or Steroid Neb IV Levaquin Pulmonary and Oncologist Consult
--- NOTE | 2018-06-29 00:22 | CP.PCM.DIS ---
Provider - Provider Date of Admission: 06/25/18 22:01 Attending physician: Amira Davis MD Time Spent in preparation of Discharge (in minutes): 25 Diagnosis - Discharge Diagnosis (1) Asthma exacerbation Status: Acute Priority: High (2) Hx of squamous cell carcinoma Status: Chronic Priority: High Hospital Course - Lab Results Lab Results: Micro Results 06/27/18 14:25 Abdomen Gram Stain - Final 06/25/18 22:30 Blood Blood Culture - Preliminary NO GROWTH AFTER 48 HOURS 06/25/18 22:00 Blood Blood Culture - Preliminary NO GROWTH AFTER 48 HOURS Most Recent Lab Values WBC 7.2 K/uL (4.8-10.8) 06/25/18 20:30 RBC 4.32 Mil/uL (3.80-5.20) 06/25/18 20:30 Hgb 13.4 g/dL (12.0-16.0) 06/25/18 20:30 Hct 39.9 % (34.0-47.0) 06/25/18 20:30 MCV 92.3 fl (81.0-99.0) 06/25/18 20:30 MCH 31.0 pg (27.0-31.0) 06/25/18 20:30 MCHC 33.6 g/dL (33.0-37.0) 06/25/18 20:30 RDW 14.7 % (11.5-14.5) H 06/25/18 20:30 Plt Count 224 K/uL (130-400) 06/25/18 20:30 MPV 7.5 fl (7.2-11.7) 06/25/18 20:30 Neut % (Auto) 61.7 % (50.0-75.0) 06/25/18 20:30 Lymph % (Auto) 23.1 % (20.0-40.0) 06/25/18 20:30 Grundy % (Auto) 13.0 % (0.0-10.0) H 06/25/18 20:30 Eos % (Auto) 1.4 % (0.0-4.0) 06/25/18 20:30 Baso % (Auto) 0.8 % (0.0-2.0) 06/25/18 20:30 Neut # (Auto) 4.5 K/uL (1.8-7.0) 06/25/18 20:30 Lymph # (Auto) 1.7 K/uL (1.0-4.3) 06/25/18 20:30 Grundy # (Auto) 0.9 K/uL (0.0-0.8) H 06/25/18 20:30 Eos # (Auto) 0.1 K/uL (0.0-0.7) 06/25/18 20:30 Baso # (Auto) 0.1 K/uL (0.0-0.2) 06/25/18 20:30 PT 10.7 Seconds (9.8-13.1) 06/25/18 20:30 INR 0.9 06/25/18 20:30 APTT 34.4 Seconds (25.6-37.1) 06/25/18 20:30 pCO2 48 mm/Hg (35-45) H 06/26/18 09:06 pO2 90 mm/Hg (80-100) 06/26/18 09:06 HCO3 26.2 mmol/L (21-28) 06/26/18 09:06 ABG pH 7.37 (7.35-7.45) 06/26/18 09:06 ABG Total CO2 29.2 mmol/L (22-28) H 06/26/18 09:06 ABG O2 Saturation 98.9 % (95-98) H 06/26/18 09:06 ABG O2 Content 17.7 ML/dL (15-23) 06/26/18 09:06 ABG Base Excess 1.7 mmol/L (-2.0-3.0) 06/26/18 09:06 ABG Hemoglobin 13.0 g/dL (11.7-17.4) 06/26/18 09:06 ABG Carboxyhemoglobin 1.7 % (0.5-1.5) H 06/26/18 09:06 POC ABG HHb (Measured) 1.1 % (0.0-5.0) 06/26/18 09:06 ABG Methemoglobin 0.9 % (0.0-3.0) 06/26/18 09:06 ABG O2 Capacity 17.9 mL/dL (16-24) 06/26/18 09:06 Dennis Test Yes 06/26/18 09:06 A-a O2 Difference 207.0 mm/Hg 06/26/18 09:06 Hgb O2 Saturation 96.4 % (95.0-98.0) 06/26/18 09: FiO2 50.0 % 06/26/18 09:06 Blood Gas Comments 20l/m 50% hiflow 06/26/18 09:06 Crit Value Read Back y 06/26/18 09:06 Sodium 138 mmol/l (132-148) 06/25/18 20:30 Potassium 4.2 MMOL/L (3.6-5.0) 06/25/18 20: Chloride 98 mmol/L (98-107) 06/25/18 20: Carbon Dioxide 29 mmol/L (22-30) 06/25/18 20: Anion Gap 15 (10-20) 06/25/18 20:30 BUN 13 mg/dl (7-17) 06/25/18 20:30 Creatinine 1.3 mg/dl (0.7-1.2) H 06/25/18 20:30 Est GFR ( Amer) 51 06/25/18 20:30 Est GFR (Non-Af Amer) 42 06/25/18 20:30 Random Glucose 131 mg/dL (65-105) H 06/25/18 20:30 Calcium 9.5 mg/dL (8.4-10.2) 06/25/18 20:30 Total Bilirubin 0.6 mg/dl (0.2-1.3) 06/25/18 20:30 AST 28 U/L (14-36) 06/25/18 20:30 ALT 34 U/L (9-52) 06/25/18 20:30 Alkaline Phosphatase 52 U/L (38-126) 06/25/18 20:30 Troponin I < 0.0120 ng/mL (0.00-0.120) 06/25/18 20:30 NT-Pro-B Natriuret Pep 41.1 pg/ml (0-900) 06/25/18 20:30 Total Protein 7.3 G/DL (6.3-8.2) 06/25/18 20:30 Albumin 4.4 g/dL (3.5-5.0) 06/25/18 20: Globulin 2.9 gm/dL (2.2-3.9) 06/25/18 20:30 Albumin/Globulin Ratio 1.5 (1.0-2.1) 06/25/18 20:30 Urine Color Straw (YELLOW) 06/25/18 20:18 Urine Clarity Clear (Clear) 06/25/18 20:18 Urine pH 6.0 (5.0-8.0) 06/25/18 20:18 Ur Specific Norton < 1.005 (1.003-1.030) 06/25/18 20:18 Urine Protein Negative mg/dL (NEGATIVE) 06/25/18 20:18 Urine Glucose (UA) Neg mg/dL (Normal) 06/25/18 20:18 Urine Ketones Negative mg/dL (NEGATIVE) 06/25/18 20:18 Urine Blood Negative (NEGATIVE) 06/25/18 20:18 Urine Nitrate Negative (NEGATIVE) 06/25/18 20:18 Urine Bilirubin Negative (NEGATIVE) 06/25/18 20:18 Urine Urobilinogen 0.2-1.0 mg/dL (0.2-1.0) 06/25/18 20:18 Ur Leukocyte Esterase Small Richy/uL (Negative) 06/25/18 20:18 Urine RBC (Auto) < 1 /hpf (0-3) 06/25/18 20:18 Urine Microscopic WBC < 1 /hpf (0-5) 06/25/18 20:18 Influenza Typ A,B (EIA) Negative for flu a/b (NEGATIVE) 06/25/18 22:40 Discharge Exam - Head Exam Head Exam: ATRAUMATIC Discharge Plan - Follow Up Plan Condition: GUARDED Disposition: HOME/ ROUTINE Instructions: Asthma, Adult (DC) Referrals: Amira Davis MD [Staff Provider] -
== END 2018-06-28 14:35 | disposition home or self-care (01) | DRG 541 ==
LOC: H.ER 19:36 → H.ERHOLD 22:01 → H.TEL 23:48
PROVIDERS: ADMIT Internal Medicine; ATTEND Internal Medicine
PROC: 3E0F7GC Introduction of Other Therapeutic Substance into Respiratory Tract, Via Natural or Artificial Opening (ICD-10-PCS; principal; 2018-06-25)
DX: J44.0 Chronic obstructive pulmonary disease with (acute) lower respiratory infection (principal); J18.9 Pneumonia, unspecified organism; J45.901 Unspecified asthma with (acute) exacerbation; J44.1 Chronic obstructive pulmonary disease with (acute) exacerbation; Z85.89 Personal history of malignant neoplasm of other organs and systems; Z87.01 Personal history of pneumonia (recurrent); Z87.891 Personal history of nicotine dependence; R06.03 Acute respiratory distress; I10 Essential (primary) hypertension

== ENCOUNTER 2018-09-17 10:33 | Observation (INO) | payer MEDICAID ==
[2018-09-17 10:47] VITALS: BMI 23.6
--- NOTE | 2018-09-17 12:39 | ED PDOC ---
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 Patient also reports she feels her lips are dry and she feels dehydrated. Patient states she follows up at [facility] due to the carcinoma and is currently in a clinical trial. She also reports she is allergic to prednisone but not decadron. No shortness of breath, throat swelling, chest pain, and no other complaints. PMD: Dr. Davis Past Medical History Reviewed: Historical Data, Nursing Documentation, Vital Signs Vital Signs: Last Vital Signs Temp 98 F 09/17/18 10:47 Pulse 108 H 09/17/18 11:12 Resp 17 09/17/18 11:12 BP 116/81 09/17/18 10:47 Pulse Ox 94 L 09/17/18 11:12 - Medical History PMH: Asthma, Bronchitis, COPD, HTN, Malignancy (internal Stage 4 Squamous Cell Carcinoma of the head/neck), Pneumonia Denies: HIV, Chronic Kidney Disease - Surgical History Surgical History: No Surg Hx - Family History Family History: States: Other Other Family History: patient w/ non-healing wound s/p PEG tube insertion and removal - Social History Ex-Smoker (has not smoked in the last 12 months): Yes Alcohol: None Drugs: Denies - Immunization History Hx Tetanus Toxoid Vaccination: Yes - Home Medications Home Medications: Ambulatory Orders Medication Instructions Recorded Ondansetron HCl [Zofran] 8 mg PO Q8 PRN 04/17/18 Levothyroxine [Synthroid] 37.5 mcg PO QAM 06/25/18 oxyCODONE [oxyCODONE Immediate 15 mg PO Q4 PRN 06/25/18 Release Tab] Albuterol Sulfate [Ventolin Hfa] 2 puff IH Q6 PRN 09/17/18 LORazepam [Ativan] 1 mg PO Q8 09/17/18 Omeprazole 20 mg PO DAILY 09/17/18 - Allergies Allergies/Adverse Reactions: Allergies Allergy/AdvReac Type Severity Reaction Status Date / Time cefepime Allergy RASH Verified 06/25/18 22:07 naproxen [From Naprosyn] Allergy RASH Verified 06/25/18 19:44 prednisone Allergy RASH Verified 06/25/18 19:44 budesonide [From Pulmicort] AdvReac SHORTNESS Verified 06/25/18 19:44 OF BREATH Review of Systems ROS Statement: Except As Marked, All Systems Reviewed And Found Negative Constitutional: Negative for: Fever, Chills ENT: Negative for: Mouth Swelling, Throat Swelling Respiratory: Negative for: Shortness of Breath Skin: Positive for: Rash Physical Exam - Reviewed Nursing Documentation Reviewed: Yes Vital Signs Reviewed: Yes - Physical Exam Appears: Positive for: Non-toxic, No Acute Distress Head Exam: Positive for: ATRAUMATIC, NORMAL INSPECTION, NORMOCEPHALIC Skin: Positive for: Rash (diffuse pruritic, macular, erythematous, flat and non- blanching rash noted to back, arms and stomach.) Eye Exam: Positive for: EOMI, PERRL Neck: Positive for: Normal, Supple Cardiovascular/Chest: Positive for: Regular Rate, Rhythm, Other (scar noted to left chest from prior port) Respiratory: Positive for: Normal Breath Sounds. Negative for: Wheezing Gastrointestinal/Abdominal: Positive for: Normal Exam, Soft, Other (non-healing wound from PEG tube insertion) Back: Positive for: Normal Inspection Extremity: Positive for: Normal ROM Neurologic/Psych: Positive for: Alert, Oriented. Negative for: Motor/Sensory Deficits - Laboratory Results Result Diagrams: 09/17/18 13:05 09/17/18 13:05 - ECG O2 Sat by Pulse Oximetry: 94 (RA) Medical Decision Making Medical Decision Makinyo female w/ pruritic macular rash Plan: -- CMP -- CBC Patient states she is concerned about steroid treatment for her rash, as she is unsure how those medication will interact with her clinical trial medications. 1420 Labs reviewed, IV fluids ordered Magnesium level ordered. [address] Davis, who recommends IV Decadron Discussed with patient regarding plan, and states she cannot take decadron per her doctors at [facility] Patient declines IV benadryl as well [address] 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 Patient to be admitted under Dr. Davis 18:06 Patient reevaluated and is comfortable and is in no distress. Scribe Attestation: Documented by Trixie Eckert acting as a scribe for Manuel Childress MD. Provider Attestation: All medical record entries made by the Scribe were at my direction and personally dictated by me. I have reviewed the chart and agree that the record accurately reflects my personal performance of the history, physical exam, medical decision making, and the department course for this patient. I have also personally directed, reviewed, and agree with the discharge instructions and disposition. Disposition - Disposition Disposition Time: 16:22 Condition: STABLE
[2018-09-17 13:46] LABS: BASO % 0.2 % (0.0-2.0); EOS # 0.2 K/uL (0.0-0.7); EOS % 3.1 % (0.0-4.0); LYMPH % 14.7 % (20.0-40.0); MEAN CELL VOLUME 91.4 fl (81.0-99.0); MEAN CORPUSCULAR HEMOGLOBIN 30.7 pg (27.0-31.0); MEAN CORPUSCULAR HGB CONC 33.6 g/dL (33.0-37.0); MEAN PLATELET VOLUME 7.8 fl (7.2-11.7); MONO # 0.8 K/uL (0.0-0.8); MONO % 11.2 % (0.0-10.0); NEUT % 70.8 % (50.0-75.0); NRBC % 0.2 % (0.0-0.0); RBC 4.87 Mil/uL (3.80-5.20); RED CELL DISTRIBUTION WIDTH 14.4 % (11.5-14.5); WHITE BLOOD COUNT 7.1 K/uL (4.8-10.8)
[2018-09-17 13:53] LABS: ALB/GLOB RATIO 1.5 (1.0-2.1); ALBUMIN 4.1 g/dL (3.5-5.0); CALCIUM 9.7 mg/dL (8.4-10.2)
[2018-09-17] MEDS ORDERED: Sodium Chloride 0.9% 1,000 ML IV STA (14:19)
[2018-09-17] MEDS ORDERED: Oxycodone/Acetaminophen 5/325 mg Tab PO ONE (16:45)
[2018-09-17] MEDS ORDERED: Oxycodone/Acetaminophen 5/325 mg Tab ONE (17:26)
[2018-09-17] MEDS ORDERED: Albuterol-Ipratrop 3 mg / 0.5 (3 ml) UD INH PRN (20:30)
[2018-09-17] MEDS: Dextrose 5%/0.9% NS 1,000 ML IV SCH (21:22)
[2018-09-18] MEDS: oxyCODONE 5 mg Immediate Release Tab PO PRN ×2 (06:04→13:13)
[2018-09-18] MEDS: Levothyroxine 25 MCG TAB PO SCH ×2 (06:06→09:32)
[2018-09-18] MEDS: Enoxaparin 40 mg Syringe SC SCH (09:25)
[2018-09-18] MEDS: Pantoprazole 40 mg EC Tab PO SCH (09:25)
[2018-09-18] MEDS: Dextrose 5%/0.9% NS 1,000 ML IV SCH ×3 (09:31→21:00)
[2018-09-18] MEDS ORDERED: Potassium Chloride 20 mEq ER Tab PO ONE (09:49)
[2018-09-19] MEDS: Dextrose 5%/0.9% NS 1,000 ML IV SCH ×3 (02:45→16:20)
[2018-09-19] MEDS: oxyCODONE 5 mg Immediate Release Tab PO PRN ×4 (03:05→21:36)
[2018-09-19] MEDS: Levothyroxine 75 MCG TAB PO SCH (05:55)
[2018-09-19] MEDS: Pantoprazole 40 mg EC Tab PO SCH (09:18)
[2018-09-19] MEDS: Enoxaparin 40 mg Syringe SC SCH (09:19)
--- NOTE | 2018-09-19 22:43 | CP.PCM.PN ---
Subjective - Date & Time of Evaluation Date of Evaluation: 09/19/18 Time of Evaluation: 19:05 Objective - Vital Signs/Intake and Output Vital Signs (last 24 hours): Temp Pulse Resp BP Pulse Ox 97 F L 78 20 116/77 96 09/19/18 16:50 09/19/18 16:50 09/19/18 16:50 09/19/18 16:50 09/19/18 16:50 - Medications Medications: Current Medications Acetaminophen (Tylenol 325mg Tab) 650 mg PO Q6 PRN PRN Reason: Headache Albuterol/Ipratropium (Duoneb 3 Mg/0.5 Mg (3 Ml) Ud) 3 ml INH RQ6 PRN PRN Reason: Shortness of Breath Last Admin: 09/18/18 21:34 Dose: 3 ml Dexamethasone (Decadron) 2 mg PO Q6 [facility] Last Admin: 09/19/18 21:37 Dose: 2 mg Diphenhydramine HCl (Benadryl) 25 mg PO Q6 PRN PRN Reason: Itching / Pruritus Enoxaparin Sodium (Lovenox) 40 mg SC DAILY [facility]; Protocol Last Admin: 09/19/18 09:19 Dose: 40 mg Levothyroxine Sodium (Synthroid) 37.5 mcg PO DAILY@0630 [facility] Last Admin: 09/19/18 05:55 Dose: 37.5 mcg Lorazepam (Ativan) 1 mg PO Q8@0900,1500,2200 [facility] Last Admin: 09/19/18 21:29 Dose: Not Given Ondansetron HCl (Zofran Tab) 8 mg PO Q8 PRN PRN Reason: Nausea/Vomiting Oxycodone HCl (Oxycodone Immediate Release Tab) 15 mg PO Q4 PRN PRN Reason: Pain, severe (8-10) Last Admin: 09/19/18 21:36 Dose: 15 mg Pantoprazole Sodium (Protonix Ec Tab) 40 mg PO DAILY [facility] Last Admin: 09/19/18 09:18 Dose: 40 mg - Labs Labs: 09/17/18 13:05 09/17/18 13:05
--- NOTE | 2018-09-19 22:43 | CP.PCM.HP ---
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 Patient also reports she feels her lips are dry and she feels dehydrated. Patient states she follows up at [facility] due to the carcinoma and is currently in a clinical trial. She also reports she is allergic to prednisone but not decadron. No shortness of breath, throat swelling, chest pain, and no other complaints. Present on Admission - Present on Admission Any Indicators Present on Admission: No Review of Systems - Review of Systems All systems: reviewed and no additional remarkable complaints except Review of Systems: as per HPI Past Patient History - Infectious Disease Hx of Infectious Diseases: None - Past Medical History & Family History Past Medical History?: Yes Past Family History: Reviewed and not pertinent - Past Social History Smoking Status: Never Smoked Alcohol: None Drugs: Denies - CARDIAC Hx Cardiac Disorders: Yes Hx Hypertension: Yes - PULMONARY Hx Respiratory Disorders: Yes Hx Asthma: Yes Hx Bronchitis: Yes Hx Chronic Obstructive Pulmonary Disease (COPD): Yes Hx Pneumonia: Yes - NEUROLOGICAL Hx Neurological Disorder: No - HEENT Hx HEENT Problems: No - RENAL Hx Chronic Kidney Disease: No - ENDOCRINE/METABOLIC Hx Endocrine Disorders: No - HEMATOLOGICAL/ONCOLOGICAL Hx Blood Disorders: No Hx Human Immunodeficiency Virus (HIV): No - INTEGUMENTARY Hx Dermatological Problems: Yes Hx Squamous Cell: Yes Other/Comment: 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 - MUSCULOSKELETAL/RHEUMATOLOGICAL Hx Musculoskeletal Disorders: Yes Hx Falls: Yes (recent fall, right knee bruise noted) - GASTROINTESTINAL Hx Gastrointestinal Disorders: No Other/Comment: s/p peg removal - GENITOURINARY/GYNECOLOGICAL Hx Genitourinary Disorders: No - PSYCHIATRIC Hx Psychophysiologic Disorder: No Hx Substance Use: No - SURGICAL HISTORY Hx Surgeries: Yes Other/Comment: biopsy neck - ANESTHESIA Hx Anesthesia: Yes Hx Anesthesia Reactions: No Hx Malignant Hyperthermia: No Meds Allergies/Adverse Reactions: Allergies Allergy/AdvReac Type Severity Reaction Status Date / Time cefepime Allergy RASH Verified 06/25/18 22:07 naproxen [From Naprosyn] Allergy RASH Verified 06/25/18 19:44 prednisone Allergy RASH Verified 06/25/18 19:44 budesonide [From Pulmicort] AdvReac SHORTNESS Verified 06/25/18 19:44 OF BREATH Physical Exam - Constitutional Appears: Well - Head Exam Head Exam: ATRAUMATIC, NORMAL INSPECTION, NORMOCEPHALIC - Eye Exam Eye Exam: EOMI, Normal appearance, PERRL Pupil Exam: NORMAL ACCOMODATION, PERRL - ENT Exam ENT Exam: Mucous Membranes Moist, Normal Exam - Neck Exam Neck exam: Positive for: Normal Inspection - Respiratory Exam Respiratory Exam: Clear to Auscultation Bilateral, NORMAL BREATHING PATTERN - Cardiovascular Exam Cardiovascular Exam: REGULAR RHYTHM - GI/Abdominal Exam GI & Abdominal Exam: Normal Bowel Sounds, Soft. absent: Tenderness - Rectal Exam Rectal Exam: NORMAL INSPECTION - Exam Exam: Circumcision, NORMAL INSPECTION External exam: NORMAL EXTERNAL EXAM Speculum exam: NORMAL SPECULUM EXAM Bimanual exam: NORMAL BIMANUAL EXAM - Extremities Exam Extremities exam: Positive for: normal inspection - Back Exam Back exam: NORMAL INSPECTION - Neurological Exam Neurological exam: Alert, CN II-XII Intact, Normal Gait, Oriented x3, Reflexes Normal - Psychiatric Exam Psychiatric exam: Normal Affect, Normal Mood - Skin Skin Exam: Dry, Intact, Normal Color, Warm Results - Vital Signs Recent Vital Signs: Last Vital Signs Temp 97 F L 09/19/18 16:50 Pulse 78 09/19/18 16:50 Resp 20 09/19/18 16:50 BP 116/77 09/19/18 16:50 Pulse Ox 96 09/19/18 16:50 - Labs Result Diagrams: 09/17/18 13:05 09/17/18 13:05 Assessment & Plan (1) Abdominal wall fistula Status: Acute Priority: Medium (2) Hx of squamous cell carcinoma Status: Chronic Priority: High (3) Neck mass Status: Acute
[2018-09-20] MEDS: Levothyroxine 75 MCG TAB PO SCH (06:37)
[2018-09-20 08:46] VITALS: BP 120/83; PULSE 73; RESP 20; TEMP 97.5; O2SAT 97
[2018-09-20] MEDS: Enoxaparin 40 mg Syringe SC SCH (09:33)
[2018-09-20] MEDS: Pantoprazole 40 mg EC Tab PO SCH (09:34)
[2018-09-20] MEDS: oxyCODONE 5 mg Immediate Release Tab PO PRN (12:50)
--- NOTE | 2018-09-21 01:57 | CP.PCM.DIS ---
Provider - Provider Date of Admission: 09/17/18 16:20 Attending physician: Amira Davis MD Consults: 09/17/18 23:37 Social Work Referral Routine Comment: lives alone Physician Instructions: Reason For Exam: lives alone Time Spent in preparation of Discharge (in minutes): 25 Diagnosis - Discharge Diagnosis (1) Generalized maculopapular rash Status: Acute (2) Medication reaction Status: Acute Priority: High (3) Abdominal wall fistula Status: Acute Priority: Medium (4) Metastatic cancer Status: Acute Priority: High (5) Squamous cell carcinoma Status: Acute Priority: High Hospital Course - Lab Results Lab Results: Micro Results 09/17/18 05:00 Abdomen Gram Stain - Final 09/17/18 05:00 Abdomen Wound Culture - Preliminary Gram Positive Cocci Yeast Species Most Recent Lab Values WBC 7.1 K/uL (4.8-10.8) 09/17/18 13:05 RBC 4.87 Mil/uL (3.80-5.20) 09/17/18 13:05 Hgb 15.0 g/dL (12.0-16.0) 09/17/18 13:05 Hct 44.5 % (34.0-47.0) 09/17/18 13:05 MCV 91.4 fl (81.0-99.0) 09/17/18 13:05 MCH 30.7 pg (27.0-31.0) 09/17/18 13:05 MCHC 33.6 g/dL (33.0-37.0) 09/17/18 13:05 RDW 14.4 % (11.5-14.5) 09/17/18 13:05 Plt Count 238 K/uL (130-400) 09/17/18 13:05 MPV 7.8 fl (7.2-11.7) 09/17/18 13:05 Neut % (Auto) 70.8 % (50.0-75.0) 09/17/18 13:05 Lymph % (Auto) 14.7 % (20.0-40.0) L 09/17/18 13:05 Otero % (Auto) 11.2 % (0.0-10.0) H 09/17/18 13:05 Eos % (Auto) 3.1 % (0.0-4.0) 09/17/18 13:05 Baso % (Auto) 0.2 % (0.0-2.0) 09/17/18 13:05 Neut # (Auto) 5.0 K/uL (1.8-7.0) 09/17/18 13:05 Lymph # (Auto) 1.0 K/uL (1.0-4.3) 09/17/18 13:05 Otero # (Auto) 0.8 K/uL (0.0-0.8) 09/17/18 13:05 Eos # (Auto) 0.2 K/uL (0.0-0.7) 09/17/18 13:05 Baso # (Auto) 0.0 K/uL (0.0-0.2) 09/17/18 13:05 Sodium 136 mmol/l (132-148) 09/17/18 13:05 Potassium 3.5 MMOL/L (3.6-5.0) L 09/17/18 13:05 Chloride 89 mmol/L (98-107) L 09/17/18 13:05 Carbon Dioxide 34 mmol/L (22-30) H 09/17/18 13:05 Anion Gap 17 (10-20) 09/17/18 13:05 BUN 14 mg/dl (7-17) 09/17/18 13:05 Creatinine 1.2 mg/dl (0.7-1.2) 09/17/18 13:05 Est GFR ( Amer) 56 09/17/18 13:05 Est GFR (Non-Af Amer) 46 09/17/18 13:05 Random Glucose 103 mg/dL (65-105) 09/17/18 13:05 Calcium 9.7 mg/dL (8.4-10.2) 09/17/18 13:05 Magnesium 1.7 MG/DL (1.6-2.3) 09/17/18 13:05 Total Bilirubin 0.9 mg/dl (0.2-1.3) 09/17/18 13:05 AST 42 U/L (14-36) H D 09/17/18 13:05 ALT 37 U/L (9-52) 09/17/18 13:05 Alkaline Phosphatase 44 U/L (38-126) 09/17/18 13:05 Total Protein 6.9 G/DL (6.3-8.2) 09/17/18 13:05 Albumin 4.1 g/dL (3.5-5.0) 09/17/18 13:05 Globulin 2.8 gm/dL (2.2-3.9) 09/17/18 13:05 Albumin/Globulin Ratio 1.5 (1.0-2.1) 09/17/18 13:05 Discharge Exam - Head Exam Head Exam: ATRAUMATIC, NORMAL INSPECTION, NORMOCEPHALIC Discharge Plan - Follow Up Plan Condition: STABLE Disposition: HOME/ ROUTINE Instructions: Skin Rash, Yeast Infection (DC) Referrals: Amira Davis MD [Staff Provider] -
== END 2018-09-20 14:25 | disposition home or self-care (01) ==
LOC: H.ER 10:33 → H.ERHOLD 16:20 → H.MEDSURG1 19:28
PROVIDERS: ADMIT Internal Medicine; ATTEND Internal Medicine
DX: R21 Rash and other nonspecific skin eruption (principal); K63.2 Fistula of intestine; I10 Essential (primary) hypertension; Z87.891 Personal history of nicotine dependence; J44.9 Chronic obstructive pulmonary disease, unspecified; C76.0 Malignant neoplasm of head, face and neck; C79.9 Secondary malignant neoplasm of unspecified site; T50.905A Adverse effect of unspecified drugs, medicaments and biological substances, initial encounter
CPT/HCPCS: 80053; 83735; 85025; 87070; 87181; 94640; 96374; 99284; G0378; J1650; J2060; J2405; J7030; J7042; J8540